=== PATIENT | male | born 1955 | race Caucasian/White ===

== ENCOUNTER → 2016-10-16 | Outpatient (CLI) | payer BC ==
[~2016-10-16] MED LIST: UNITHROID
== END | disposition home or self-care (01) ==
LOC: C.LAB1850 09:31
PROVIDERS: ATTEND Family Medicine
DX: E03.9 Hypothyroidism, unspecified (principal)

== ENCOUNTER → 2017-01-11 | Outpatient (CLI) | payer BC ==
[2017-01-11 15:38] LABS: THYROID STIMULATING HORMONE 0.031 uIu/ml (0.300-4.500)
== END | disposition home or self-care (01) ==
LOC: C.LAB1850 14:18
PROVIDERS: ATTEND Family Medicine
DX: E03.9 Hypothyroidism, unspecified (principal)

== ENCOUNTER → 2017-10-26 | Outpatient (CLI) | payer BC ==
[2017-10-26 12:12] LABS: BASO % 0.1 %; BASO ABS # 0.01 K/uL (0-0.2); EOS % 6.1 %; EOS ABS # 0.48 K/uL (0-0.5); HEMATOCRIT 42.7 % (42-52); HEMOGLOBIN 14.7 g/dL (14.0-18.0); IG# 0.01 K/uL (0.00-0.02); LYMPH % 26.8 %; LYMPH ABS # 2.11 K/uL (1.2-3.4); MEAN CELL VOLUME 88.6 fL (80-100); MEAN CORPUSCULAR HEMOGLOBIN 30.5 pg (25-34); MEAN CORPUSCULAR HGB CONC 34.4 g/dl (32-36); MEAN PLATELET VOLUME 10.6 fL (7.4-10.4); MONO % 7.8 %; MONO ABS # 0.61 K/uL (0.11-0.59); NEUT % 59.1 %; NEUT ABS # 4.64 K/uL (1.4-6.5); PLATELET COUNT 176 K/uL (130-400); RED CELL DISTRIBUTION WIDTH CV 13.3 % (11.5-14.5); RED CELL DISTRIBUTION WIDTH SD 43.3 fL (36.4-46.3); WHITE BLOOD COUNT 7.86 K/uL (4.8-10.8)
[2017-10-26 12:53] LABS: ALBUMIN 3.9 gm/dl (3.4-5.0); ALT/SGPT 44 U/L (12-78); AST/SGOT 22 U/L (15-37); BLOOD UREA NITROGEN 19 mg/dl (7-18); CALCIUM 9.2 mg/dl (8.5-10.1); CARBON DIOXIDE 28 mmol/L (21-32); CREATININE 0.88 mg/dl (0.60-1.40); GLUCOSE 91 mg/dl (70-99); POTASSIUM 4.3 mmol/L (3.5-5.1); SODIUM 134 mmol/L (136-145)
[2017-10-26 12:59] LABS: HEMOGLOBIN A1C 5.5 % (4.5-5.6)
[2017-10-26 13:04] LABS: ALKALINE PHOSPHATASE 56 U/L (45-117); CHOLESTEROL 137 mg/dl (0-200); LDL CHOLESTEROL CALCULATED 72 mg/dl; TOTAL PROTEIN 7.8 gm/dl (6.4-8.2)
== END | disposition home or self-care (01) ==
LOC: C.LAB1850 11:23
PROVIDERS: ATTEND Nurse Practitioner Family
DX: I42.9 Cardiomyopathy, unspecified (principal); E03.9 Hypothyroidism, unspecified; K21.9 Gastro-esophageal reflux disease without esophagitis; I10 Essential (primary) hypertension; N52.9 Male erectile dysfunction, unspecified; R73.03 Prediabetes

== ENCOUNTER 2017-11-19 08:07 | Inpatient (IN) | payer BC ==
[~2017-11-19] VITALS: Ht 175.3 cm; Wt 108.2 kg
--- NOTE | 2017-11-19 08:23 | EMERGENCY ROOM VISIT NOTE ---
History Report prepared by Jackie: Juan Miguel Gill Under the Supervision of: Dr. Keaton Sosa D.O. First contact with patient: 08:14 Chief Complaint: SHORTNESS OF BREATH Stated Complaint: SOB, CHEST TIGHTNESS History of Present Illness The patient is a 62 year old male who presents to the Emergency Room with complaints of persistent shortness of breath that began this morning at 0010, 8 hours ago. The patient states that his shortness of breath woke him up from sleep. His symptoms are worsened by laying flat, and improved by sitting up. He denies any chest pain, nausea, vomiting, or abdominal pain. He has no history of shortness of breath issues. He has not taken any of his medications yet today , including Lisinopril Source of History: patient Onset: 8 hours ago Position: chest Quality: other (Shortness of breath) Timing: other (persistent) Modifying Factors (Worsening): other (lying flat) Modifying Factors (Relieving): other (Standing up) Associated Symptoms: No chest pain, No nausea, No vomiting, No abdominal pain Review of Systems See HPI for pertinent positives & negatives. A total of 10 systems reviewed and were otherwise negative. Past Medical & Surgical Medical Problems: (1) Congestive heart failure (CHF) (2) HYPERTENSION NOS (3) HYPOTHYROIDISM NOS Family History Cancer Diabetes mellitus Heart disease Hypertension Social History Smoking Status: Former Smoker Alcohol Use: occasionally Drug Use: none Occupation Status: employed Current/Historical Medications Scheduled Aspirin (Aspirin Ec), 81 MG PO DAILY Levothyroxine Sodium (Synthroid), 150 MCG PO DAILY Lisinopril (Zestril), 10 MG PO DAILY Metoprolol Succ (Toprol Xl) (Toprol-Xl), 25 MG PO DAILY Multivitamin (Multivitamin), 1 TAB PO DAILY Allergies Coded Allergies: No Known Allergies (Unverified , 11/19/17) Physical Exam Vital Signs Date Time Temp Pulse Resp B/P (MAP) Pulse Ox O2 Delivery O2 Flow Rate FiO2 11/19/17 10:01 135/91 11/19/17 10:01 113 11/19/17 10:00 110 20 94 11/19/17 09:29 111 11/19/17 09:03 154/102 11/19/17 09:00 112 20 154/102 94 Room Air 11/19/17 08:27 108 5/18/18 08:25 99 Room Air 11/19/17 08:11 36.6 117 18 131/69 96 Room Air Physical Exam GENERAL: Patient is awake, alert, and in no acute distress. Patient somewhat anxious. EYES: The conjunctivae are clear. The pupils are round and reactive. EARS, NOSE, MOUTH AND THROAT: The nose is without any evidence of any deformity. Mucous membranes are moist tongue is midline NECK: The neck is nontender and supple. RESPIRATORY: Breath sounds are diminished throughout. Normal respiratory effort is noted there is no evidence of wheezing rhonchi or rales CARDIOVASCULAR: Tachycardic rate and rhythm noted there no murmurs rubs or gallops normal S1 normal S2 GASTROINTESTINAL: The abdomen is soft. Bowel sounds are present in all quadrants. Abdomen is nontender MUSCULOSKELETAL/EXTREMITIES: There is no evidence of gross deformity full range of motion is noted in the hips and shoulders SKIN: There is no obvious evidence of any rash. There is pedal edema bilaterally. There are no petechiae, pallor or cyanosis noted. NEUROLOGIC: Patient is awake alert and oriented x3 Medical Decision & Procedures ER Provider Diagnostic Interpretation: Radiology results as stated below per my review and radiologist interpretation: CHEST ONE VIEW PORTABLE HISTORY: 62 years-old Male EVALUATE ALTERED MENTAL STATUS/WEAKNESS acute shortness of breath with altered mental status COMPARISON: None available TECHNIQUE: Portable AP view of the chest FINDINGS: Cardiac silhouette is enlarged. Pulmonary vascular congestion with interstitial coarsening and trace effusions. Trace fluid tracks along the minor fissure. No pneumothorax. Subsegmental bibasilar opacities are noted. Degenerative changes about the spine and shoulders. IMPRESSION: 1. Cardiomegaly with mild pulmonary edema and trace bilateral pleural effusions. 2. Subsegmental bibasilar opacities favor atelectasis. The above report was generated using voice recognition software. It may contain grammatical, syntax or spelling errors. Electronically signed by: Jaxson Scanlon M.D. 11/19/2017 8:52 AM Dictated Date/Time: 11/19/2017 8:51 AM Laboratory Results 11/19/17 08:29 Red Blood Count 4.95, Mean Corpuscular Volume 86.9, Mean Corpuscular Hemoglobin 30.7, Mean Corpuscular Hemoglobin Concent 35.3, Mean Platelet Volume 10.3, Neutrophils (%) (Auto) 60.8, Lymphocytes (%) (Auto) 24.7, Monocytes (%) (Auto) 7.8, Eosinophils (%) (Auto) 6.3, Basophils (%) (Auto) 0.1, Neutrophils # (Auto) 5.26, Lymphocytes # (Auto) 2.14, Monocytes # (Auto) 0.68, Eosinophils # (Auto) 0.55, Basophils # (Auto) 0.01 11/19/17 08:29 Test 11/19/17 08:29 11/19/17 09:00 White Blood Count 8.67 K/uL (4.8-10.8) Red Blood Count 4.95 M/uL (4.7-6.1) Hemoglobin 15.2 g/dL (14.0-18.0) Hematocrit 43.0 % (42-52) Mean Corpuscular Volume 86.9 fL (80-100) Mean Corpuscular Hemoglobin 30.7 pg (25-34) Mean Corpuscular Hemoglobin Concent 35.3 g/dl (32-36) Platelet Count 170 K/uL (130-400) Mean Platelet Volume 10.3 fL (7.4-10.4) Neutrophils (%) (Auto) 60.8 % Lymphocytes (%) (Auto) 24.7 % Monocytes (%) (Auto) 7.8 % Eosinophils (%) (Auto) 6.3 % Basophils (%) (Auto) 0.1 % Neutrophils # (Auto) 5.26 K/uL (1.4-6.5) Lymphocytes # (Auto) 2.14 K/uL (1.2-3.4) Monocytes # (Auto) 0.68 K/uL (0.11-0.59) Eosinophils # (Auto) 0.55 K/uL (0-0.5) Basophils # (Auto) 0.01 K/uL (0-0.2) RDW Standard Deviation 43.1 fL (36.4-46.3) RDW Coefficient of Variation 13.7 % (11.5-14.5) Immature Granulocyte % (Auto) 0.3 % Immature Granulocyte # (Auto) 0.03 K/uL (0.00-0.02) Prothrombin Time 10.4 SECONDS (9.0-12.0) Prothromb Time International Ratio 1.0 (0.9-1.1) Activated Partial Thromboplast Time 25.5 SECONDS (21.0-31.0) Partial Thromboplastin Ratio 1.0 Anion Gap 6.0 mmol/L (3-11) Est Creatinine Clear Calc Drug Dose 103.3 ml/min Estimated GFR () 104.2 Estimated GFR (Non- 89.9 BUN/Creatinine Ratio 15.5 (10-20) Calcium Level 8.5 mg/dl (8.5-10.1) Magnesium Level 1.9 mg/dl (1.8-2.4) Total Bilirubin 0.7 mg/dl (0.2-1) Direct Bilirubin 0.2 mg/dl (0-0.2) Aspartate Amino Transf (AST/SGOT) 24 U/L (15-37) Alanine Aminotransferase (ALT/SGPT) 44 U/L (12-78) Alkaline Phosphatase 59 U/L (45-117) Total Creatine Kinase 84 U/L (39-308) Creatine Kinase MB 2.0 ng/ml (0.5-3.6) Creatine Kinase MB Ratio 2.4 (0-3.0) Troponin I < 0.015 ng/ml (0-0.045) Pro-B-Type Natriuretic Peptide 1333 pg/ml (0-900) Total Protein 7.5 gm/dl (6.4-8.2) Albumin 3.7 gm/dl (3.4-5.0) Lipase 105 U/L (73-393) Thyroid Stimulating Hormone (TSH) 0.095 uIu/ml (0.300-4.500) Free Thyroxine 1.27 ng/dl (0.80-1.60) Hepatitis C Antibody Screen NEG (NEG) Urine Color YELLOW Urine Appearance CLEAR (CLEAR) Urine pH 5.0 (4.5-7.5) Urine Specific [place] 1.017 (1.000-1.030) Urine Protein NEG (NEG) Urine Glucose (UA) NEG (NEG) Urine Ketones NEG (NEG) Urine Occult Blood NEG (NEG) Urine Nitrite NEG (NEG) Urine Bilirubin NEG (NEG) Urine Urobilinogen NEG (NEG) Urine Leukocyte Esterase SMALL (NEG) Urine WBC (Auto) 1-5 /hpf (0-5) Urine RBC (Auto) 0-4 /hpf (0-4) Urine Hyaline Casts (Auto) 0 /lpf (0-5) Urine Epithelial Cells (Auto) 0-5 /lpf (0-5) Urine Bacteria (Auto) NEG (NEG) Laboratory results per my review. Medications Administered Medications (Trade) Dose Ordered Sig/Kamila Route Start Time Stop Time Status Last Admin Dose Admin Furosemide (Lasix Inj) 40 mg NOW STAT IV 11/19/17 09:34 11/19/17 09:35 DC 11/19/17 10:02 40 MG Metoprolol Succinate (Toprol Xl Tab) 25 mg 1024 ONCE PO 11/19/17 10:24 11/19/17 10:54 DC 11/19/17 12:02 25 MG Lisinopril (Zestril Tab) 10 mg 1024 ONCE PO 11/19/17 10:24 11/19/17 10:54 DC 11/19/17 12:02 10 MG ECG Per My Interpretation Indication: SOB/dyspnea Rate (beats per minute): 120 Rhythm: sinus tachycardia Findings: PVC (frequent), other (possible areas electrical alternans noted. ) Comparison ECG Date: 05/17/2001 Change: changes are new. ED Course 0814: The patient was evaluated in room A2. A complete history and physical examination were performed. 0934: Ordered Lasix 40 mg IV. 0937: I discussed the case with Dr. Mueller [facility] Hospitalist. He will evaluate the patient for further treatment. 0945: Ordered Nitroglycerin 0.5 inch EXT. Medical Decision Differential diagnosis: Etiologies such as infections, reactive airway disease, pneumonia, pneumothorax , COPD, CHF, cardiac ischemia, pulmonary embolism, musculoskeletal, gastrointestinal, as well as others were entertained. Nursing notes reviewed. The patient is a 62-year-old male who presented to the emergency department for an evaluation of difficulty breathing. The patient was having orthopnea. His history and physical exam appear to be consistent with pulmonary edema. The patient had chest x-ray which was consistent with cardiomegaly and pulmonary edema. He was treated with Lasix and nitroglycerin in the emergency department. I discussed his case with the on-call alessandra Apple hospitalist. They have agreed to evaluate the patient in the emergency department for further management and disposition. The patient had a echocardiogram which showed significantly diminished ejection fraction. Likely the patient will require further cardiac workup. I discussed patient's laboratory and radiographic studies with him. Medication Reconcilliation Current Medication List: was personally reviewed by me Blood Pressure Screening Patient's blood pressure: Elevated blood pressure Referred to Hospitalist Consults Time Called: [phone] Consulting Physician: Dr. Ervin RODRIGUEZ Hospitalist Returned Call: [phone] I discussed the case with Dr. Ervin RODRIGUEZ Hospitalist. He will evaluate the patient for further treatment. Impression Primary Impression: Pulmonary edema Additional Impression: Frequent PVCs Scribe Attestation The scribe's documentation has been prepared under my direction and personally reviewed by me in its entirety. I confirm that the note above accurately reflects all work, treatment, procedures, and medical decision making performed by me. Departure Information Dispostion Being Evaluated By Hospitalist Referrals Judah Hebert III, CRNP (PCP) Patient Instructions My [facility] Problem Qualifiers Primary Impression: Pulmonary edema Chronicity: acute Qualified Codes: J81.0 - Acute pulmonary edema
[2017-11-19 08:39] LABS: BASO % 0.1 %; BASO ABS # 0.01 K/uL (0-0.2); EOS % 6.3 %; EOS ABS # 0.55 K/uL (0-0.5); HEMOGLOBIN 15.2 g/dL (14.0-18.0); IG# 0.03 K/uL (0.00-0.02); LYMPH % 24.7 %; LYMPH ABS # 2.14 K/uL (1.2-3.4); MEAN CELL VOLUME 86.9 fL (80-100); MEAN CORPUSCULAR HEMOGLOBIN 30.7 pg (25-34); MEAN CORPUSCULAR HGB CONC 35.3 g/dl (32-36); MEAN PLATELET VOLUME 10.3 fL (7.4-10.4); MONO % 7.8 %; MONO ABS # 0.68 K/uL (0.11-0.59); NEUT % 60.8 %; NEUT ABS # 5.26 K/uL (1.4-6.5); PLATELET COUNT 170 K/uL (130-400); RED CELL DISTRIBUTION WIDTH CV 13.7 % (11.5-14.5); RED CELL DISTRIBUTION WIDTH SD 43.1 fL (36.4-46.3); WHITE BLOOD COUNT 8.67 K/uL (4.8-10.8)
[2017-11-19] MEDS ORDERED: METO25TA3 PO (08:44)
[2017-11-19] MEDS ORDERED: MULT-506 PO (08:44)
[2017-11-19] MEDS ORDERED: LISI-461 PO (08:44)
[2017-11-19] MEDS ORDERED: ASPI81TA28 PO (08:44)
[2017-11-19] MEDS ORDERED: LEVO150T PO (08:44)
[2017-11-19] MEDS ORDERED: LEVO175T PO (08:44)
[2017-11-19 08:53] LABS: PTT PATIENT 25.5 SECONDS (21.0-31.0)
--- NOTE | 2017-11-19 08:53 | DIAGNOSTIC IMAGING REPORT ---
CHEST ONE VIEW PORTABLE HISTORY: 62 years-old Male EVALUATE ALTERED MENTAL STATUS/WEAKNESS acute shortness of breath with altered mental status COMPARISON: None available TECHNIQUE: Portable AP view of the chest FINDINGS: Cardiac silhouette is enlarged. Pulmonary vascular congestion with interstitial coarsening and trace effusions. Trace fluid tracks along the minor fissure. No pneumothorax. Subsegmental bibasilar opacities are noted. Degenerative changes about the spine and shoulders. IMPRESSION: 1. Cardiomegaly with mild pulmonary edema and trace bilateral pleural effusions. 2. Subsegmental bibasilar opacities favor atelectasis. The above report was generated using voice recognition software. It may contain grammatical, syntax or spelling errors. Electronically signed by: Jaxson Scanlon M.D. 11/19/2017 8:52 AM Dictated Date/Time: 11/19/2017 8:51 AM
[2017-11-19 09:03] LABS: ALBUMIN 3.7 gm/dl (3.4-5.0); ALKALINE PHOSPHATASE 59 U/L (45-117); ALT/SGPT 44 U/L (12-78); AST/SGOT 24 U/L (15-37); BLOOD UREA NITROGEN 14 mg/dl (7-18); CALCIUM 8.5 mg/dl (8.5-10.1); CARBON DIOXIDE 26 mmol/L (21-32); GLUCOSE 129 mg/dl (70-99); LIPASE 105 U/L (73-393); SODIUM 136 mmol/L (136-145); TOTAL PROTEIN 7.5 gm/dl (6.4-8.2)
[2017-11-19] MEDS ORDERED: FUROSEMIDE 40 MG/4 ML VIAL IV STA (09:34)
[2017-11-19] MEDS ORDERED: NITROGLYCERIN 2% OINTMENT 30GM TUBE EXT ONE (09:45)
[2017-11-19] MEDS ORDERED: METOPROLOL SUCC 25MG EXT REL TAB PO ONE (10:24)
[2017-11-19] MEDS ORDERED: LISINOPRIL 10 MG TAB PO ONE (10:24)
[2017-11-19] MEDS ORDERED: ACETAMINOPHEN 325 MG TAB PO PRN (10:30)
[2017-11-19] MEDS ORDERED: MAGNESIUM HYDROXIDE SUSP 30 ML UDC PO PRN (10:30)
[2017-11-19] MEDS ORDERED: ALUMINUM/MAGNESIUM/SIMETH (MAALOX MAX) 30 ML UDC PO PRN (10:30)
[2017-11-19] MEDS ORDERED: POLYETHYLENE (MIRALAX) 17 GM PACK PO PRN (10:30)
[2017-11-19] MEDS ORDERED: ONDANSETRON INJ 2 MG/ML 2 ML VIAL IV PRN (10:30)
[2017-11-19 10:43] VITALS: O2SAT 94; Ht 175.3 cm; Wt 108.2 kg
--- NOTE | 2017-11-19 10:53 | History and Physical ---
History & Physical Date & Time of Service: November 19, 2017 at 10:37 Chief Complaint: Sob, Chest Tightness Primary Care Physician: Judah Hebert III, CRNP History of Present Illness Source: patient, spouse, clinic records, hospital records This is a 62 y/o male with a history of HTN, idiopathic cardiomyopathy, hypothyroidism, h/o prediabetes, and GERD who presented to the ED on 11/19 with shortness of breath and orthopnea. The patient states he developed shortness of breath this morning starting around midnight, and this woke him from sleep. He states that his breathing is improved with sitting up and worse laying flat. The patient states he was wheezing this morning, but this is now resolved. His shortness of breath has also improved since arrival. He also notes a productive cough with clear sputum. He denies any chest pain but states that his "lungs felt tight" with deep breaths. The patient denies any weight gain, in fact has recently lost weight, and denies increased lower extremity edema. The patient has a history of idiopathic cardiomyopathy that was discovered via stress testing, but per pt, a repeat stress test later was normal and he no longer follows with cardiology. He does report a history of intermittent palpitations, but denies any currently. The patient denies fevers, chills, sweats, chest pain, palpitations, claudication, nausea, vomiting, abdominal pain , dysuria, hematuria, urinary retention, paralysis, weakness, numbness and tingling. 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 No chest pain, No claudication, No palpitations Abdomen: No pain, No nausea, No vomiting Musculoskeletal: No joint pain, No muscle pain, No swelling Genitourinary - Male: No dysuria, No urinary retention, No hematuria Neurologic: No paralysis, No weakness, No numbness/tingling Integumentary: No rash, No itch, No color change Physical Exam Vital Signs Date Time Temp Pulse Resp B/P (MAP) Pulse Ox O2 Delivery O2 Flow Rate FiO2 11/19/17 10:01 113 11/19/17 09:29 111 11/19/17 09:00 112 20 154/102 94 Room Air 11/19/17 08:27 108 11/19/17 08:25 99 Room Air 11/19/17 08:11 36.6 117 18 131/69 96 Room Air General appearance: +Obese. Well-developed, well-nourished, no apparent distress Head: Normocephalic, atraumatic Eyes: Normal inspection, PERRL, EOMI ENT: Normal ENT inspection, hearing grossly normal, pharynx normal Neck: Supple, no JVD, trachea midline Respiratory/Chest: +Decreased breath sounds in bases. Lungs clear to auscultation, no respiratory distress Cardiovascular: +Tachycardic. Regular rhythm, no gallop, no murmur Abdomen/GI: Normal bowel sounds, non-tender, soft Extremities/Musculoskeletal: +Trace pitting edema. Normal inspection, no calf tenderness Neurological/Psych: Alert, normal mood/affect, oriented x 3 Skin: Normal color, warm/dry, no rash Diagnostics Laboratory Results Results Past 24 Hours Test 11/19/17 08:29 11/19/17 09:00 Range/Units White Blood Count 8.67 4.8-10.8 K/uL Red Blood Count 4.95 4.7-6.1 M/uL Hemoglobin 15.2 14.0-18.0 g/dL Hematocrit 43.0 42-52 % Mean Corpuscular Volume 86.9 80-100 fL Mean Corpuscular Hemoglobin 30.7 25-34 pg Mean Corpuscular Hemoglobin Concent 35.3 32-36 g/dl Platelet Count 170 130-400 K/uL Mean Platelet Volume 10.3 7.4-10.4 fL Neutrophils (%) (Auto) 60.8 % Lymphocytes (%) (Auto) 24.7 % Monocytes (%) (Auto) 7.8 % Eosinophils (%) (Auto) 6.3 % Basophils (%) (Auto) 0.1 % Neutrophils # (Auto) 5.26 1.4-6.5 K/uL Lymphocytes # (Auto) 2.14 1.2-3.4 K/uL Monocytes # (Auto) 0.68 0.11-0.59 K/uL Eosinophils # (Auto) 0.55 0-0.5 K/uL Basophils # (Auto) 0.01 0-0.2 K/uL RDW Standard Deviation 43.1 36.4-46.3 fL RDW Coefficient of Variation 13.7 11.5-14.5 % Immature Granulocyte % (Auto) 0.3 % Immature Granulocyte # (Auto) 0.03 0.00-0.02 K/uL Prothrombin Time 10.4 9.0-12.0 SECONDS Prothromb Time International Ratio 1.0 0.9-1.1 Activated Partial Thromboplast Time 25.5 21.0-31.0 SECONDS Partial Thromboplastin Ratio 1.0 Sodium Level 136 136-145 mmol/L Potassium Level 4.0 3.5-5.1 mmol/L Chloride Level 104 98-107 mmol/L Carbon Dioxide Level 26 21-32 mmol/L Anion Gap 6.0 3-11 mmol/L Blood Urea Nitrogen 14 7-18 mg/dl Creatinine 0.90 0.60-1.40 mg/dl Est Creatinine Clear Calc Drug Dose 103.3 ml/min Estimated GFR () 104.2 Estimated GFR (Non- 89.9 BUN/Creatinine Ratio 15.5 10-20 Random Glucose 129 70-99 mg/dl Calcium Level 8.5 8.5-10.1 mg/dl Magnesium Level 1.9 1.8-2.4 mg/dl Total Bilirubin 0.7 0.2-1 mg/dl Direct Bilirubin 0.2 0-0.2 mg/dl Aspartate Amino Transf (AST/SGOT) 24 15-37 U/L Alanine Aminotransferase (ALT/SGPT) 44 12-78 U/L Alkaline Phosphatase 59 45-117 U/L Total Creatine Kinase 84 39-308 U/L Creatine Kinase MB 2.0 0.5-3.6 ng/ml Creatine Kinase MB Ratio 2.4 0-3.0 Troponin I < 0.015 0-0.045 ng/ml Pro-B-Type Natriuretic Peptide 1333 0-900 pg/ml Total Protein 7.5 6.4-8.2 gm/dl Albumin 3.7 3.4-5.0 gm/dl Lipase 105 73-393 U/L Thyroid Stimulating Hormone (TSH) 0.095 0.300-4.500 uIu/ml Free Thyroxine 1.27 0.80-1.60 ng/dl Urine Color YELLOW Urine Appearance CLEAR CLEAR Urine pH 5.0 4.5-7.5 Urine Specific [place] 1.017 1.000-1.030 Urine Protein NEG NEG Urine Glucose (UA) NEG NEG Urine Ketones NEG NEG Urine Occult Blood NEG NEG Urine Nitrite NEG NEG Urine Bilirubin NEG NEG Urine Urobilinogen NEG NEG Urine Leukocyte Esterase SMALL NEG Urine WBC (Auto) 1-5 0-5 /hpf Urine RBC (Auto) 0-4 0-4 /hpf Urine Hyaline Casts (Auto) 0 0-5 /lpf Urine Epithelial Cells (Auto) 0-5 0-5 /lpf Urine Bacteria (Auto) NEG NEG Diagnostic Radiology Reviewed the following studies and agree with interpretation as follows: CHEST ONE VIEW PORTABLE HISTORY: 62 years-old Male EVALUATE ALTERED MENTAL STATUS/WEAKNESS acute shortness of breath with altered mental status COMPARISON: None available TECHNIQUE: Portable AP view of the chest FINDINGS: Cardiac silhouette is enlarged. Pulmonary vascular congestion with interstitial coarsening and trace effusions. Trace fluid tracks along the minor fissure. No pneumothorax. Subsegmental bibasilar opacities are noted. Degenerative changes about the spine and shoulders. IMPRESSION: 1. Cardiomegaly with mild pulmonary edema and trace bilateral pleural effusions. 2. Subsegmental bibasilar opacities favor atelectasis. EKG Reviewed EKG and agree with interpretation as follows: 120 bpm, sinus tachycardia with low QRS voltage, possible evidence of electrical alternans? Impression Assessment and Plan 62 y/o male with a history of HTN, idiopathic cardiomyopathy, hypothyroidism, h/ o prediabetes, and GERD who presented to the ED on 11/19 with shortness of breath and orthopnea. Pt tachycardic on arrival but is non-hypoxic and BP stable. EKG shows sinus tach with low voltage QRS and possible electrical alternans. CXR shows pulmonary edema. BNP is elevated at 1333. TSH low at 0.095. Troponin negative. Pt given 1 dose Lasix 40 mg IV in ED. New onset congestive heart failure, unknown if systolic or diastolic -Admit to telemetry -Daily weights, strict I's & O's -Lasix 40 mg IV qd -Low sodium diet -Echocardiogram -Consult cardiology -Trend cardiac enzymes x 2 more sets, first set negative -Continue metoprolol, lisinopril Possible pericardial effusion -Echo as above, cardiology will follow -Hemodynamically stable HTN--stable, NOT hypotensive -Continue Toprol XL 25 mg PO qd, lisinopril 10 mg PO qd H/o ischemic cardiomyopathy--pt had been seeing Dr. De La Rosa, this is apparently resolved per pt and has not seen cardiology for years Hypothyroidism -TSH 0.095. May be contributing to tachycardia -Pt recently saw PCP, Synthroid dose lowered about 2 weeks ago. Scheduled to repeat TSH as outpatient in a few weeks -Continue Synthroid 150 mcg PO qd (lowered from 175) H/o prediabetes--last HgbA1c 5.5 on 10/26/17 -Monitor daily glucose on PRP, hold off on ISS for now DVT prophylaxis -Enoxaparin 40 mg SC q24h -STEVE Ruizs Code Status -Level I, FULL RESUSCITATION STATUS Resuscitation Status VTE Prophylaxis Will order VTE Prophylaxis: Yes
[2017-11-19 12:10] VITALS: BP 124/82; PULSE 108; TEMP 36.7; O2SAT 96
--- NOTE | 2017-11-19 13:31 | ECHOCARDIOGRAM REPORT ---
*NOTICE TO RECEIVING [employer] This information is strictly Confidential and protected under [place] law. [place] law prohibits you from making any further disclosure of this information unless further disclosure is expressly permitted by the written consent of the person to whom it pertains or is authorized by law. A general authorization for the release of medical or other information is not sufficient for this purpose. Hospital accepts no responsibility if the information is made available to any other person, INCLUDING THE PATIENT. Interpretation Summary * Name: ALEXANDRA PATTERSON Study Date: 11/19/2017 11:08 AM BP: 135/91 mmHg * Patient [facility] HR: 110 * : 1955 (M/d/yyyy) Gender: Male Height: 69 in * Age: 62 yrs Ethnicity: [place] Weight: 247 lb * Ordering Physician: Jina Becker * Referring Physician: Self, Referred * Performed By: Bernice Powers RDCS * * Reason For Study: CHF * BSA: 2.3 m2 * -- Conclusions -- * 1. Moderately to severely dilated left ventricle with severely reduced systolic function. EF 20-25%. Global hypokinesis. No left ventricular hypertrophy. No visualized apical thrombus. Tissue Doppler suggests elevated left atrial pressure. * 2. The left atrium is moderately dilated. * 3. Sclerotic aortic valve with [id number] aortic stenosis and mild regurgitation. Degree of aortic stenosis may be underestimated secondary to reduced LV systolic function. * 4. There is mild mitral regurgitation. * 5. Technically difficult study, enhanced with IV Definity. * 6. No prior study available for comparison. Procedure Details * A contrast injection of Definity was performed to improve assessment of LV function. * Contrast was injected into an intravenous site in the left arm. * One vial of Definity ultrasound contrast was diluted in normal saline to a total volume of 10 ml. A total of '2' ml of solution was administered during imaging. * Lot # [id number] of Definity utilized for procedure. * Expiration date OCT 21. Left Ventricle * Moderately to severely dilated left ventricle with severely reduced systolic function. EF 20-25%. Global hypokinesis. No left ventricular hypertrophy. No visualized apical thrombus. Right Ventricle * The right ventricle is normal in size and function. * The right ventricular systolic function is normal as assessed by tricuspid annular plane systolic excursion (TAPSE) (normal >1.5 cm). Atria * The left atrium is moderately dilated. * Right atrial size is normal. * There is no evidence of atrial septal defect, but resolution does not allow assessment for a patent foramen ovale. Mitral Valve * The mitral valve is grossly normal. * There is no mitral valve stenosis. * There is mild mitral regurgitation. Tricuspid Valve * The tricuspid valve is not well visualized, but is grossly normal. * There is no tricuspid stenosis. * Significant tricuspid regurgitation is absent. Aortic Valve * Dimensionless index 0.3 * Sclerotic aortic valve with [id number] aortic stenosis and mild regurgitation. Degree of aortic stenosis may be underestimated secondary to reduced LV systolic function. Pulmonic Valve * The pulmonary valve is inadequately visualized, but the Doppler data is adequate for interpretation. * There is no pulmonic valvular stenosis. * There is no significant pulmonary regurgitation. Great Vessels * The aortic root is normal size. * Ascending aorta of normal dimension Pericardium/Pleural * There is no pericardial effusion. Great Vessels * Normal IVC size. Reduced inspiratory collapse. MMode 2D Measurements and Calculations IVSd 0.92 cm IVSs 10 cm LVIDd 6.4 cm LVIDs 6.0 cm LVPWd 1.1 cm LVPWs 1.4 cm IVS/LVPW 0.87 FS 6.8 % EDV(Teich) 209.4 ml ESV(Teich) 178.3 ml EF(Teich) 14.8 % EDV(cubed) 263.5 ml ESV(cubed) 213.3 ml EF(cubed) 19.1 % % IVS thick 7.9 % % LVPW thick 31.3 % LV mass(C)d 272.9 grams LV mass(C)dI 120.8 grams/m\S\2 LV mass(C)s 309.1 grams LV mass(C)sI 136.8 grams/m\S\2 SV(Teich) 31.1 ml SI(Teich) 13.8 ml/m\S\2 SV(cubed) 50.2 ml SI(cubed) 22.2 ml/m\S\2 Ao root diam 2.7 cm Ao root area 5.6 cm\S\2 LA dimension 4.5 cm asc Aorta Diam 2.6 cm LA/Ao 1.7 LVOT diam 2.2 cm LVOT area 3.9 cm\S\2 LVAd ap4 50.0 cm\S\2 LVLd ap4 9.0 cm EDV(MOD-sp4) 228.0 ml EDV(sp4-el) 235.7 ml LVAs ap4 42.6 cm\S\2 LVLs ap4 8.6 cm ESV(MOD-sp4) 175.3 ml ESV(sp4-el) 180.3 ml EF(MOD-sp4) 23.1 % EF(sp4-el) 23.5 % LVAd ap2 44.3 cm\S\2 LVLd ap2 8.4 cm EDV(MOD-sp2) 184.3 ml EDV(sp2-el) 197.3 ml LVAs ap2 37.0 cm\S\2 LVLs ap2 7.9 cm ESV(MOD-sp2) 140.0 ml ESV(sp2-el) 146.7 ml EF(MOD-sp2) 24.0 % EF(sp2-el) 25.7 % LVLd %diff -6.60 % EDV(MOD-bp) 207.4 ml LVLs %diff -8.18 % ESV(MOD-bp) 155.2 ml EF(MOD-bp) 25.1 % SV(MOD-sp4) 52.7 ml SI(MOD-sp4) 23.3 ml/m\S\2 SV(MOD-sp2) 44.3 ml SI(MOD-sp2) 19.6 ml/m\S\2 SV(MOD-bp) 52.1 ml SI(MOD-bp) 23.1 ml/m\S\2 SV(sp4-el) 55.3 ml SI(sp4-el) 24.5 ml/m\S\2 SV(sp2-el) 50.6 ml SI(sp2-el) 22.4 ml/m\S\2 Doppler Measurements and Calculations MV E max jaspreet 106.7 cm/sec MV dec time 0.12 sec Ao V2 max 272.3 cm/sec Ao max PG 29.7 mmHg Ao max PG (full) 26.9 mmHg Ao V2 mean 199.5 cm/sec Ao mean PG 17.7 mmHg Ao mean PG (full) 16.0 mmHg Ao V2 VTI 49.5 cm HUBERT(I,A) 1.4 cm\S\2 HUBERT(I,D) 1.4 cm\S\2 HUBERT(V,A) 1.2 cm\S\2 HUBERT(V,D) 1.2 cm\S\2 AI max jaspreet 409.9 cm/sec AI max PG 67.2 mmHg AI dec slope 416.8 cm/sec\S\2 AI P1/2t 288.1 msec LV V1 max PG 2.7 mmHg LV V1 mean PG 1.7 mmHg LV V1 max 82.6 cm/sec LV V1 mean 62.4 cm/sec LV V1 VTI 17.1 cm SV(Ao) 278.1 ml SI(Ao) 123.1 ml/m\S\2 SV(LVOT) 66.9 ml SI(LVOT) 29.6 ml/m\S\2 RAP systole 8.0 mmHg
[2017-11-19] MEDS: ENOXAPARIN 40 MG/0.4 ML SYR SC SCH (14:18)
[2017-11-19 15:32] VITALS: BP 107/73; PULSE 110; TEMP 36.4; O2SAT 96
[2017-11-19 16:43] LABS: CKMB 1.8 ng/ml (0.5-3.6)
--- NOTE | 2017-11-19 16:56 | Cardiology Consultation ---
Cardiology Consultation Date of Consultation: November 19, 2017. Requesting Physician: Dr. Gaudencio Suresh Attending Physician: Dr. Gaudencio Suresh Reason for Consultation: New onset CHF and possible pericardial effusion Pt evaluation today including: conversation w/ patient, conversation w/ family , physical exam, chart review, lab review, review of studies, review of inpatient medication list, conversation w/ attending History of Present Illness Mr. Muller is a very pleasant 62-year-old gentleman with a history significant for cardiomyopathy and hypothyroidism. In the past, he was followed by Dr. De La Rosa, last seen on 11/25/2010. He was diagnosed with presumed idiopathic cardiomyopathy in the past with frequent but minimally symptomatic ventricular ectopy. He was medicated with metoprolol succinate 25 mg daily and lisinopril 10 mg daily. In the past, there was discussion in obtaining CT angiography to help define his coronary anatomy but this was not done due to insurance issues. He has not had a cardiac catheterization. His last cardiac imaging was in the form of a stress echo on 04/16/2011 which reported negative ischemic evaluation, exercising for 5 minutes on a standard Antoni protocol. Resting LV systolic function was moderately reduced with reported EF of 40%. Global hypokinesis was reported, as well as possibly bicuspid aortic valve and mild MR. He has done well since last evaluation with Dr. De La Rosa until early this morning. At approximately 12:10 a.m., he woke up and went to the restroom. When he came back, he was unable to lay down secondary to orthopnea. He felt a full feeling across his chest that would last for several minutes before resolving. It occurred intermittently. He thinks his symptoms actually felt better with ambulation. He went downstairs and sat in a lazy boy due to orthopnea. He had intermittent palpitations described as a flutter sensation that would last for a few minutes before spontaneously resolving. He was given diuretic therapy and he already feels much better. He denies any further feeling in his chest or chest discomfort. He denies syncope, near-syncope, or significant edema. He denies melena, hematochezia, hematuria, recent illness, stroke-like symptom, abdominal pain, nausea, vomiting , rash, or other symptom. He does not consume foods high in sodium content. Review of systems: As above review of systems otherwise negative/unremarkable. Past Medical/Surgical History 1. Cardiomyopathy 2. Hypothyroidism 3. PVCs 4. According to records, hypertension but he denies a diagnosis of hypertension. Family History Cancer (prostate, unknown gynecological cancer) Diabetes mellitus Heart disease Hypertension Myocardial infarction Stroke Mother while hospitalized with CABG at the age of 67. Social History Smoking Status: Former Smoker (quit about 30 years ago) History of Alcohol Use: No Quit smoking 25+ years ago. Two or 3 alcoholic beverages per week. No drugs. Lives at home with his , Saray, who is sitting at the bedside. An adult son also lives at home. Also has a daughter. Three grandchildren. He drives [employer]. All Other Systems: Reviewed and Negative Allergies Coded Allergies: No Known Allergies (Unverified , 11/19/17) Medications Reported Home Medications Medications Dose Route/Sig Max Daily Dose Days Date Category Toprol-Xl (Metoprolol Succinate) 25 Mg Tabcr 25 Mg PO DAILY 11/19/17 Reported Zestril (Lisinopril) 10 Mg Tab 10 Mg PO DAILY 11/19/17 Reported Synthroid (Levothyroxine Sodium) 150 Mcg Tab 150 Mcg PO DAILY 11/19/17 Reported Multivitamin (Multivitamins) Tab 1 Tab PO DAILY 11/19/17 Reported Aspirin Ec (Aspirin) 81 Mg Tab 81 Mg PO DAILY 11/19/17 Reported Current Inpatient Medications Medications (Trade) Dose Ordered Sig/Kamila Route Start Time Stop Time Status Last Admin Dose Admin Enoxaparin Sodium (Lovenox Inj) 40 mg DAILY SC 11/19/17 13:00 12/19/17 12:59 11/19/17 14:18 40 MG Acetaminophen (Tylenol Tab) 650 mg Q4H PRN PO 11/19/17 10:30 12/19/17 10:29 Al Hydrox/Mg Hydrox/Simethicone (Maalox Max Susp) 15 ml Q4H PRN PO 11/19/17 10:30 12/19/17 10:29 Magnesium Hydroxide (Milk Of Magnesia Susp) 30 ml Q12H PRN PO 11/19/17 10:30 12/19/17 10:29 Ondansetron HCl (Zofran Inj) 4 mg Q6H PRN IV 11/19/17 10:30 12/19/17 10:29 Polyethylene (Miralax Powder Packet) 17 gm DAILY PRN PO 11/19/17 10:30 12/19/17 10:29 Furosemide 40 mg/ Syringe 4 ml @ 4 mls/min DAILY IV 11/20/17 09:00 12/20/17 08:59 Aspirin (Ecotrin Tab) 81 mg DAILY PO 11/20/17 09:00 12/20/17 08:59 Levothyroxine Sodium (Synthroid Tab) 150 mcg DAILYBB PO 11/20/17 06:30 12/20/17 06:29 Lisinopril (Zestril Tab) 10 mg DAILY PO 11/20/17 09:00 12/20/17 08:59 Metoprolol Succinate (Toprol Xl Tab) 25 mg DAILY PO 11/20/17 09:00 12/20/17 08:59 Multivitamins (Multivitamin Tab) 1 tab DAILY PO 11/20/17 09:00 12/20/17 08:59 Physical Exam Vital Signs Past 12 Hours Date Time Temp Pulse Resp B/P (MAP) Pulse Ox O2 Delivery O2 Flow Rate FiO2 11/19/17 15:32 36.4 110 18 107/73 (84) 96 Room Air 11/19/17 12:10 36.7 108 20 124/82 (96) 96 Room Air 11/19/17 12:02 106 20 110/76 98 11/19/17 11:45 110 20 98 11/19/17 10:43 94 Room Air 11/19/17 10:01 135/91 11/19/17 10:01 113 11/19/17 10:00 110 20 94 11/19/17 09:29 111 11/19/17 09:03 154/102 11/19/17 09:00 112 20 154/102 94 Room Air 11/19/17 08:27 108 11/19/17 08:25 99 Room Air 11/19/17 08:11 36.6 117 18 131/69 96 Room Air Gen.: No acute distress. Alert and oriented. HEENT: Anicteric sclera. Neck: Thick neck. No appreciable JVD. Hepatic jugular reflux noted however. No bruits. Normal carotid upstrokes bilaterally. Cardiac: PMI was nonpalpable. No ventricular heave. Regular rate and rhythm. Normal S1-S2. S3. Systolic murmur heard throughout. No rub. Pulmonary: Decreased breath sounds throughout, but otherwise clear to auscultation bilaterally without wheezes, rales, or rhonchi. Abdomen: Soft, nontender, nondistended, with normoactive bowel sounds. No bruits noted. Extremities: 2+ radial pulses bilaterally. 2+ posterior tibialis pulses bilaterally. Trace to 1+ bilateral lower extremity edema. No cyanosis. Psychiatric: Affect appears appropriate. Data Laboratory Results: Last 24 Hours Test 11/19/17 08:29 11/19/17 09:00 11/19/17 16:11 White Blood Count 8.67 K/uL Red Blood Count 4.95 M/uL Hemoglobin 15.2 g/dL Hematocrit 43.0 % Mean Corpuscular Volume 86.9 fL Mean Corpuscular Hemoglobin 30.7 pg Mean Corpuscular Hemoglobin Concent 35.3 g/dl Platelet Count 170 K/uL Mean Platelet Volume 10.3 fL Neutrophils (%) (Auto) 60.8 % Lymphocytes (%) (Auto) 24.7 % Monocytes (%) (Auto) 7.8 % Eosinophils (%) (Auto) 6.3 % Basophils (%) (Auto) 0.1 % Neutrophils # (Auto) 5.26 K/uL Lymphocytes # (Auto) 2.14 K/uL Monocytes # (Auto) 0.68 K/uL Eosinophils # (Auto) 0.55 K/uL Basophils # (Auto) 0.01 K/uL RDW Standard Deviation 43.1 fL RDW Coefficient of Variation 13.7 % Immature Granulocyte % (Auto) 0.3 % Immature Granulocyte # (Auto) 0.03 K/uL Prothrombin Time 10.4 SECONDS Prothromb Time International Ratio 1.0 Activated Partial Thromboplast Time 25.5 SECONDS Partial Thromboplastin Ratio 1.0 Sodium Level 136 mmol/L Potassium Level 4.0 mmol/L Chloride Level 104 mmol/L Carbon Dioxide Level 26 mmol/L Anion Gap 6.0 mmol/L Blood Urea Nitrogen 14 mg/dl Creatinine 0.90 mg/dl Est Creatinine Clear Calc Drug Dose 103.3 ml/min Estimated GFR () 104.2 Estimated GFR (Non- 89.9 BUN/Creatinine Ratio 15.5 Random Glucose 129 mg/dl Calcium Level 8.5 mg/dl Magnesium Level 1.9 mg/dl Total Bilirubin 0.7 mg/dl Direct Bilirubin 0.2 mg/dl Aspartate Amino Transf (AST/SGOT) 24 U/L Alanine Aminotransferase (ALT/SGPT) 44 U/L Alkaline Phosphatase 59 U/L Total Creatine Kinase 84 U/L Creatine Kinase MB 2.0 ng/ml Creatine Kinase MB Ratio 2.4 Troponin I < 0.015 ng/ml Pro-B-Type Natriuretic Peptide 1333 pg/ml Total Protein 7.5 gm/dl Albumin 3.7 gm/dl Lipase 105 U/L Thyroid Stimulating Hormone (TSH) 0.095 uIu/ml Free Thyroxine 1.27 ng/dl Hepatitis C Antibody Screen NEG Urine Color YELLOW Urine Appearance CLEAR Urine pH 5.0 Urine Specific Hope 1.017 Urine Protein NEG Urine Glucose (UA) NEG Urine Ketones NEG Urine Occult Blood NEG Urine Nitrite NEG Urine Bilirubin NEG Urine Urobilinogen NEG Urine Leukocyte Esterase SMALL Urine WBC (Auto) 1-5 /hpf Urine RBC (Auto) 0-4 /hpf Urine Hyaline Casts (Auto) 0 /lpf Urine Epithelial Cells (Auto) 0-5 /lpf Urine Bacteria (Auto) NEG ECG personally reviewed. ECG 11/19/2017 at 8:25 a.m.: Probable sinus tachycardia with frequent PACs with intermittent aberrant ventricular conduction. Possible anterior infarct. Echo 11/19/2017 personally reviewed: Moderately to severely dilated LV with severely reduced systolic function. EF 20-25%. Global hypokinesis. No visualized apical thrombus. Tissue Doppler suggests elevated left atrial pressure. Moderately dilated left atrium. Sclerotic aortic valve with mild-to- moderate stenosis and mild AI. Degree of aortic stenosis may be underestimated secondary to reduced LV systolic function. Mild MR. Chest x-ray 11/19/2017: Reported as mild pulmonary edema and trace bilateral pleural effusions by Radiology. Upon personal review, increased vascular markings. No obvious infiltrate. Assessment & Plan ASSESSMENT/PLAN: 1. Acute systolic CHF: He appears hypervolemic but has improved with IV diuretic. Continue IV diuretic. Monitor fluid balance closely. Daily weights. Low-sodium diet. We discussed importance of less than 2000 mg of sodium per day and daily weights at home. Start Entresto in [address] of lisinopril. Continue beta-ralph. 2. Cardiomyopathy: Recommend ischemic evaluation. Cardiac catheterization recommended and discussed in detail. Risks and benefits discussed with him. He was made aware that CT surgery is not available at this facility and is agreeable to undergo cardiac catheterization. As he ate this afternoon, this will be planned for [place]. Increase metoprolol succinate tomorrow. Replace lisinopril with Entresto. LV systolic function significantly reduced. After titration of medications, if no improvement, consider ICD. This will be followed as an outpatient. Recommend right and left heart catheterization. 3. Chest discomfort: He describes a fullness in his chest. This could represent angina or could be secondary to decompensated CHF. Ischemic evaluation as above. Recommend aspirin 81 mg daily. Continue beta-ralph with changes as above. 4. Aortic stenosis: Degree of aortic stenosis may be underestimated secondary to reduced LV systolic function. This can be further evaluated in the future. 5. Tachycardia: Likely secondary to decompensated CHF and significantly reduced LV systolic function to help maintain adequate cardiac output. Continue current dose of metoprolol today but after hypervolemia improves, can titrate tomorrow. 6. Disposition: Cardiology will continue to follow. Plan of care discussed with Dr. Suresh of the primary hospitalist service. It was also discussed with Dr. Ashton, who will be available to perform the cardiac catheterization. Dr. Espinosa will be covering this weekend and patient care will be signed out to him. Call with any questions or concerns. Highly complex medical issues. Thank you for allowing me to participate in the care of your patient. Please call for any other questions or concerns. Sincerely, Saurabh Haddad M.D.
[2017-11-19 19:58] VITALS: BP 106/68; PULSE 88; TEMP 36.8; O2SAT 95
[2017-11-20] VITALS (7 sets, daily range): BP systolic 95–113; BP diastolic 49–75; PULSE 80–102; TEMP 36.4–37; O2SAT 95–98
[2017-11-20 00:48] LABS: CKMB 1.6 ng/ml (0.5-3.6)
[2017-11-20] MEDS: LEVOTHYROXINE 150 MCG TAB PO SCH (06:04)
[2017-11-20 07:19] LABS: HEMATOCRIT 41.5 % (42-52); HEMOGLOBIN 14.4 g/dL (14.0-18.0); MEAN CELL VOLUME 86.6 fL (80-100); MEAN CORPUSCULAR HEMOGLOBIN 30.1 pg (25-34); MEAN CORPUSCULAR HGB CONC 34.7 g/dl (32-36); MEAN PLATELET VOLUME 10.2 fL (7.4-10.4); PLATELET COUNT 150 K/uL (130-400); RED CELL DISTRIBUTION WIDTH CV 13.6 % (11.5-14.5); WHITE BLOOD COUNT 7.74 K/uL (4.8-10.8)
[2017-11-20 07:50] LABS: CALCIUM 8.4 mg/dl (8.5-10.1); CREATININE 0.81 mg/dl (0.60-1.40); POTASSIUM 4.1 mmol/L (3.5-5.1)
[2017-11-20] MEDS: FUROSEMIDE INJ 40 MG in SYRINGE 0 ML IV SCH (08:58)
[2017-11-20] MEDS: ASPIRIN 81 MG ECTAB PO SCH (08:59)
[2017-11-20] MEDS: ENOXAPARIN 40 MG/0.4 ML SYR SC SCH (09:00)
[2017-11-20] MEDS ORDERED: LISINOPRIL 10 MG TAB PO SCH (09:00)
[2017-11-20] MEDS: MULTIVITAMIN TAB PO SCH (09:00)
[2017-11-20] MEDS ORDERED: METOPROLOL SUCC 25MG EXT REL TAB PO SCH (09:00)
[2017-11-20] MEDS: METOPROLOL SUCC 25MG EXT REL TAB PO SCH (09:33)
--- NOTE | 2017-11-20 10:30 | Progress Note ---
Subjective Date of Service: November 20, 2017. Subjective Pt evaluation today including: conversation w/ patient, physical exam, lab review, conversation w/ hematology oncology consultant, review of inpatient medication list Pain: no pain PO Intake: adequate Voiding: no voiding problems continues to respond well to Lasix weight down 4kg, inaccurate I/O's no dyspnea today, no orthopnea reviewed labs, Cr stable with diuresis HR better controlled today, BP low normal Problem List Medical Problems: (1) Frequent PVCs Status: Acute (2) Pulmonary edema Status: Acute Review of Systems All Other Systems: Reviewed and Negative Medications Current Inpatient Medications Medications (Trade) Dose Ordered Sig/Kamila Route Start Time Stop Time Status Last Admin Dose Admin Enoxaparin Sodium (Lovenox Inj) 40 mg DAILY SC 11/19/17 13:00 12/19/17 12:59 11/20/17 09:00 40 MG Acetaminophen (Tylenol Tab) 650 mg Q4H PRN PO 11/19/17 10:30 12/19/17 10:29 Al Hydrox/Mg Hydrox/Simethicone (Maalox Max Susp) 15 ml Q4H PRN PO 11/19/17 10:30 12/19/17 10:29 Magnesium Hydroxide (Milk Of Magnesia Susp) 30 ml Q12H PRN PO 11/19/17 10:30 12/19/17 10:29 Ondansetron HCl (Zofran Inj) 4 mg Q6H PRN IV 11/19/17 10:30 12/19/17 10:29 Polyethylene (Miralax Powder Packet) 17 gm DAILY PRN PO 11/19/17 10:30 12/19/17 10:29 Furosemide 40 mg/ Syringe 4 ml @ 4 mls/min DAILY IV 11/20/17 09:00 12/20/17 08:59 11/20/17 08:58 4 MLS/MIN Aspirin (Ecotrin Tab) 81 mg DAILY PO 11/20/17 09:00 12/20/17 08:59 11/20/17 08:59 81 MG Levothyroxine Sodium (Synthroid Tab) 150 mcg DAILYBB PO 11/20/17 06:30 12/20/17 06:29 11/20/17 06:04 150 MCG Multivitamins (Multivitamin Tab) 1 tab DAILY PO 11/20/17 09:00 12/20/17 08:59 11/20/17 09:00 1 TAB Metoprolol Succinate (Toprol Xl Tab) 50 mg DAILY PO 11/20/17 09:00 12/20/17 08:59 11/20/17 09:33 50 MG Sacubitril/ Valsartan (Entresto 24-26 Mg) 1 tab BID PO 11/21/17 08:00 12/21/17 07:59 Objective Vital Signs Date Time Temp Pulse Resp B/P (MAP) Pulse Ox O2 Delivery O2 Flow Rate FiO2 11/20/17 07:30 36.8 94 18 113/72 (86) 96 Room Air 11/20/17 04:27 37.0 80 17 107/73 (84) 96 Room Air 11/20/17 04:00 Room Air 11/20/17 01:01 36.4 100 18 106/74 (85) 96 Room Air 11/20/17 00:00 Room Air 11/19/17 20:00 Room Air 11/19/17 19:58 36.8 88 18 106/68 (81) 95 Room Air 11/19/17 16:00 Room Air 11/19/17 15:32 36.4 110 18 107/73 (84) 96 Room Air 11/19/17 12:10 36.7 108 20 124/82 (96) 96 Room Air 11/19/17 12:02 106 20 110/76 98 11/19/17 11:45 110 20 98 11/19/17 10:43 94 Room Air Physical Exam General Appearance: no apparent distress, + obese Eyes: normal inspection, EOMI, sclerae normal ENT: normal ENT inspection, hearing grossly normal, pharynx normal Neck: supple, no adenopathy, no JVD, trachea midline Respiratory/Chest: chest non-tender, lungs clear, normal breath sounds, no respiratory distress, no accessory muscle use Cardiovascular: regular rate, rhythm, no edema, no gallop, no JVD, no murmur Abdomen: normal bowel sounds, non tender, soft, no organomegaly Extremities: normal range of motion, non-tender, normal inspection, no pedal edema, no calf tenderness 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, no motor/sensory deficits, alert, normal mood/affect, oriented x 3 Skin: normal color, warm/dry, no rash Laboratory Results Last 24 Hours Test 11/19/17 16:11 11/20/17 00:12 11/20/17 07:00 Total Creatine Kinase 92 U/L 76 U/L Creatine Kinase MB 1.8 ng/ml 1.6 ng/ml Creatine Kinase MB Ratio 2.0 2.1 Troponin I < 0.015 ng/ml < 0.015 ng/ml White Blood Count 7.74 K/uL Red Blood Count 4.79 M/uL Hemoglobin 14.4 g/dL Hematocrit 41.5 % Mean Corpuscular Volume 86.6 fL Mean Corpuscular Hemoglobin 30.1 pg Mean Corpuscular Hemoglobin Concent 34.7 g/dl RDW Standard Deviation 43.0 fL RDW Coefficient of Variation 13.6 % Platelet Count 150 K/uL Mean Platelet Volume 10.2 fL Sodium Level 138 mmol/L Potassium Level 4.1 mmol/L Chloride Level 105 mmol/L Carbon Dioxide Level 27 mmol/L Anion Gap 6.0 mmol/L Blood Urea Nitrogen 13 mg/dl Creatinine 0.81 mg/dl Est Creatinine Clear Calc Drug Dose 111.8 ml/min Estimated GFR () 108.9 Estimated GFR (Non- 93.9 BUN/Creatinine Ratio 16.3 Random Glucose 107 mg/dl Calcium Level 8.4 mg/dl Assessment and Plan 62 yo male presented with acute onset of orthopnea and dyspnea on exertion, started in the middle of the night. Found to have EF of 25-30% which was new finding on echo - Acute systolic heart failure: new onset, EF is 25-30% continue Toprol, titrate up to 50mg daily today, HR and BP tolerating today continue Lisinopril 10mg, tentatively plan to start Entresto on Wednesday per cardiology continue Lasix 40mg IV daily, weight down 4kg today, Cr stable fluid restrict to 1800cc daily plan for diagnostic heart catheterization on Wednesday improve volume status over the weekend - Acute respiratory failure: due to pulmonary edema, resolved with diuresis - Hypothyroidism with low TSH due to high dose of Synthroid was addressed by PCP two weeks ago, will follow up with PCP - HTN: BP low normal, continue Toprol, Lisinopril - DVT prophylaxis: Lovenox
--- NOTE | 2017-11-20 11:21 | Cardiology Follow-Up ---
Subjective Date of Service: November 20, 2017. Pt evaluation today including: conversation w/ patient, physical exam, lab review, review of studies, review of inpatient medication list History of Present Illness He is feeling very well today, he is not short of breath and he has had no chest discomfort. He does not have lightheadedness or dizziness. He has started Entresto as well as a higher dose of metoprolol given this morning and so far feels well. Social History Smoking Status: Former Smoker (quit about 30 years ago) History of Alcohol Use: No Review of Systems Respiratory: No shortness of breath Cardiac: No chest pain Medications Cardiovascular: Item Value Date Time Sacubitril/ 1 tab 11/21/17 0800 Valsartan BID/PO (Entresto 24-26 Mg) Furosemide 40 mg/ 4 ml @ 4 mls/min 11/20/17 0900 Syringe DAILY/IV 11/20/17 0858 Aspirin 81 mg 11/20/17 0900 (Ecotrin Tab) DAILY/PO 11/20/17 0859 Metoprolol 50 mg 11/20/17 0900 Succinate DAILY/PO 11/20/17 0933 (Toprol Xl Tab) Enoxaparin Sodium 40 mg 11/19/17 1300 (Lovenox Inj) DAILY/SC 11/20/17 0900 Objective Vital Signs Past 12 Hours Date Time Temp Pulse Resp B/P (MAP) Pulse Ox O2 Delivery O2 Flow Rate FiO2 11/20/17 08:00 Room Air 11/20/17 07:30 36.8 94 18 113/72 (86) 96 Room Air 11/20/17 04:27 37.0 80 17 107/73 (84) 96 Room Air 11/20/17 04:00 Room Air 11/20/17 01:01 36.4 100 18 106/74 (85) 96 Room Air 11/20/17 00:00 Room Air Last Recorded Weight-Kilograms: 108.400 Physical Exam Constitutional: General Apperance: heathly-appearing Level of Distress: NAD Ambulation: ambulating normally Lungs: Auscultation: breath sounds normal Cardiovascular: Heart Auscultation: RRR, no murmurs, tachycardia Extremities: no edema Gen.: No acute distress. Alert and oriented. HEENT: Anicteric sclera. Neck: Thick neck. No appreciable JVD. Hepatic jugular reflux noted however. No bruits. Normal carotid upstrokes bilaterally. Cardiac: PMI was nonpalpable. No ventricular heave. Regular rate and rhythm. Normal S1-S2. S3. Systolic murmur heard throughout. No rub. Pulmonary: Decreased breath sounds throughout, but otherwise clear to auscultation bilaterally without wheezes, rales, or rhonchi. Abdomen: Soft, nontender, nondistended, with normoactive bowel sounds. No bruits noted. Extremities: 2+ radial pulses bilaterally. 2+ posterior tibialis pulses bilaterally. Trace to 1+ bilateral lower extremity edema. No cyanosis. Psychiatric: Affect appears appropriate. Data Laboratory Results: Last 24 Hours Test 11/19/17 16:11 11/20/17 00:12 11/20/17 07:00 Total Creatine Kinase 92 U/L 76 U/L Creatine Kinase MB 1.8 ng/ml 1.6 ng/ml Creatine Kinase MB Ratio 2.0 2.1 Troponin I < 0.015 ng/ml < 0.015 ng/ml White Blood Count 7.74 K/uL Red Blood Count 4.79 M/uL Hemoglobin 14.4 g/dL Hematocrit 41.5 % Mean Corpuscular Volume 86.6 fL Mean Corpuscular Hemoglobin 30.1 pg Mean Corpuscular Hemoglobin Concent 34.7 g/dl RDW Standard Deviation 43.0 fL RDW Coefficient of Variation 13.6 % Platelet Count 150 K/uL Mean Platelet Volume 10.2 fL Sodium Level 138 mmol/L Potassium Level 4.1 mmol/L Chloride Level 105 mmol/L Carbon Dioxide Level 27 mmol/L Anion Gap 6.0 mmol/L Blood Urea Nitrogen 13 mg/dl Creatinine 0.81 mg/dl Est Creatinine Clear Calc Drug Dose 111.8 ml/min Estimated GFR () 108.9 Estimated GFR (Non- 93.9 BUN/Creatinine Ratio 16.3 Random Glucose 107 mg/dl Calcium Level 8.4 mg/dl Telemetry reviewed: Sinus rhythm and sinus tachycardia, heart rate quite elevated at times but sinus mechanism Assessment and Plan 1. Cardiomyopathy: Probably nonischemic, but we need to exclude ischemic heart disease. He is scheduled for catheterization Wednesday. His medications are being titrated, so far he is tolerating them well. We will probably have to go up on his beta-ralph but I am not going to do it today as this is his first day of 50 mg metoprolol succinate. He is still tachycardic so we can may be increased tomorrow if he feels well. 2. Congestive heart failure: Clinically he is doing very well on his current regimen and does not have shortness of breath or orthopnea. Thank you for allowing me to participate in his care.
[2017-11-21] VITALS (7 sets, daily range): BP systolic 92–132; BP diastolic 61–78; PULSE 88–95; TEMP 36.4–36.9; O2SAT 95–98
[2017-11-21 05:58] LABS: HEMATOCRIT 41.7 % (42-52); HEMOGLOBIN 14.8 g/dL (14.0-18.0); MEAN CORPUSCULAR HEMOGLOBIN 31.2 pg (25-34); MEAN CORPUSCULAR HGB CONC 35.5 g/dl (32-36); PLATELET COUNT 171 K/uL (130-400); RED CELL DISTRIBUTION WIDTH CV 13.5 % (11.5-14.5); RED CELL DISTRIBUTION WIDTH SD 43.3 fL (36.4-46.3); WHITE BLOOD COUNT 9.13 K/uL (4.8-10.8)
[2017-11-21 05:59] LABS: MEAN PLATELET VOLUME 10.8 fL (7.4-10.4)
[2017-11-21] MEDS: LEVOTHYROXINE 150 MCG TAB PO SCH (06:05)
[2017-11-21 06:30] LABS: CALCIUM 8.4 mg/dl (8.5-10.1); CREATININE 0.89 mg/dl (0.60-1.40); POTASSIUM 4.2 mmol/L (3.5-5.1)
[2017-11-21] MEDS: SACUBITRIL-VALSARTAN 24-26 MG TAB PO SCH ×3 (07:48→20:56)
[2017-11-21] MEDS: FUROSEMIDE INJ 40 MG in SYRINGE 0 ML IV SCH (07:49)
[2017-11-21] MEDS: MULTIVITAMIN TAB PO SCH (07:49)
[2017-11-21] MEDS: METOPROLOL SUCC 25MG EXT REL TAB PO SCH (07:49)
[2017-11-21] MEDS: ASPIRIN 81 MG ECTAB PO SCH (07:50)
[2017-11-21] MEDS: ENOXAPARIN 40 MG/0.4 ML SYR SC SCH (07:51)
[2017-11-21] MEDS ORDERED: METOPROLOL SUCC 25MG EXT REL TAB PO STA (11:18)
--- NOTE | 2017-11-21 11:18 | Cardiology Follow-Up ---
Subjective Date of Service: November 21, 2017. Pt evaluation today including: conversation w/ patient, physical exam, lab review, review of studies, review of inpatient medication list History of Present Illness He continues to feel very well, evidently during the night he was told that his blood pressure was low but he did not feel it. He is tolerating his medications very well symptomatically. He has no shortness of breath. Social History Smoking Status: Former Smoker (quit about 30 years ago) History of Alcohol Use: No Review of Systems Respiratory: No shortness of breath Cardiac: No chest pain Medications Cardiovascular: Item Value Date Time Sacubitril/ 1 tab 11/21/17 0800 Valsartan BID/PO (Entresto 24-26 Mg) Furosemide 40 mg/ 4 ml @ 4 mls/min 11/20/17 0900 Syringe DAILY/IV 11/21/17 0749 Aspirin 81 mg 11/20/17 0900 (Ecotrin Tab) DAILY/PO 11/21/17 0750 Metoprolol 50 mg 11/20/17 0900 Succinate DAILY/PO 11/21/17 0749 (Toprol Xl Tab) Enoxaparin Sodium 40 mg 11/19/17 1300 (Lovenox Inj) DAILY/SC 11/21/17 0751 Objective Vital Signs Past 12 Hours Date Time Temp Pulse Resp B/P (MAP) Pulse Ox O2 Delivery O2 Flow Rate FiO2 11/21/17 08:00 Room Air 11/21/17 07:14 36.6 89 18 132/77 (95) 95 Room Air 11/21/17 04:00 Room Air 11/21/17 03:40 36.7 89 18 102/68 (79) 98 Room Air 11/21/17 00:00 Room Air 11/20/17 23:43 36.6 86 18 95/64 (74) 98 Room Air Last Recorded Weight-Kilograms: 108.500 Physical Exam Constitutional: General Apperance: heathly-appearing Level of Distress: NAD Ambulation: ambulating normally Lungs: Auscultation: breath sounds normal Cardiovascular: Heart Auscultation: RRR, no murmurs, tachycardia Extremities: no edema Gen.: No acute distress. Alert and oriented. HEENT: Anicteric sclera. Neck: Thick neck. No appreciable JVD. Hepatic jugular reflux noted however. No bruits. Normal carotid upstrokes bilaterally. Cardiac: PMI was nonpalpable. No ventricular heave. Regular rate and rhythm. Normal S1-S2. S3. Systolic murmur heard throughout. No rub. Pulmonary: Decreased breath sounds throughout, but otherwise clear to auscultation bilaterally without wheezes, rales, or rhonchi. Abdomen: Soft, nontender, nondistended, with normoactive bowel sounds. No bruits noted. Extremities: 2+ radial pulses bilaterally. 2+ posterior tibialis pulses bilaterally. Trace to 1+ bilateral lower extremity edema. No cyanosis. Psychiatric: Affect appears appropriate. Data Laboratory Results: Last 24 Hours Test 11/21/17 05:12 White Blood Count 9.13 K/uL Red Blood Count 4.74 M/uL Hemoglobin 14.8 g/dL Hematocrit 41.7 % Mean Corpuscular Volume 88.0 fL Mean Corpuscular Hemoglobin 31.2 pg Mean Corpuscular Hemoglobin Concent 35.5 g/dl RDW Standard Deviation 43.3 fL RDW Coefficient of Variation 13.5 % Platelet Count 171 K/uL Mean Platelet Volume 10.8 fL Sodium Level 138 mmol/L Potassium Level 4.2 mmol/L Chloride Level 105 mmol/L Carbon Dioxide Level 27 mmol/L Anion Gap 6.0 mmol/L Blood Urea Nitrogen 17 mg/dl Creatinine 0.89 mg/dl Est Creatinine Clear Calc Drug Dose 101.8 ml/min Estimated GFR () 104.7 Estimated GFR (Non- 90.4 BUN/Creatinine Ratio 19.7 Random Glucose 115 mg/dl Calcium Level 8.4 mg/dl EKG: ECG this morning shows sinus rhythm with PVCs, heart rate 97. Telemetry reviewed: Sinus rhythm, heart rate better but still somewhat elevated. PVCs, brief runs of PAT. Assessment and Plan 1. Cardiomyopathy: Probably nonischemic, but we need to exclude ischemic heart disease. He is scheduled for catheterization tomorrow. His medications are being titrated, so far he is tolerating them well. We should be able to go up on his beta-ralph today, I will increase to 75 mg metoprolol succinate. His heart rate is still somewhat elevated so we may be able to increase it again tomorrow if he feels well. 2. Congestive heart failure: Clinically he is doing very well on his current regimen and does not have shortness of breath or orthopnea. Thank you for allowing me to participate in his care.
--- NOTE | 2017-11-21 13:43 | Progress Note ---
Subjective Date of Service: November 21, 2017. Subjective Pt evaluation today including: conversation w/ patient, physical exam, lab review, conversation w/ wig sales consultant, review of inpatient medication list Pain: no pain PO Intake: adequate Voiding: no voiding problems patient feels well, breathing easy, urinating a lot with Lasix discussed with Dr. Espinosa reviewed labs, Cr stable at 0.8 reviewed medications Problem List Medical Problems: (1) Frequent PVCs Status: Acute (2) Pulmonary edema Status: Acute Review of Systems All Other Systems: Reviewed and Negative Medications Current Inpatient Medications Medications (Trade) Dose Ordered Sig/Kamila Route Start Time Stop Time Status Last Admin Dose Admin Enoxaparin Sodium (Lovenox Inj) 40 mg DAILY SC 11/19/17 13:00 12/19/17 12:59 11/21/17 07:51 40 MG Acetaminophen (Tylenol Tab) 650 mg Q4H PRN PO 11/19/17 10:30 12/19/17 10:29 Al Hydrox/Mg Hydrox/Simethicone (Maalox Max Susp) 15 ml Q4H PRN PO 11/19/17 10:30 12/19/17 10:29 Magnesium Hydroxide (Milk Of Magnesia Susp) 30 ml Q12H PRN PO 11/19/17 10:30 12/19/17 10:29 Ondansetron HCl (Zofran Inj) 4 mg Q6H PRN IV 11/19/17 10:30 12/19/17 10:29 Polyethylene (Miralax Powder Packet) 17 gm DAILY PRN PO 11/19/17 10:30 12/19/17 10:29 Furosemide 40 mg/ Syringe 4 ml @ 4 mls/min DAILY IV 11/20/17 09:00 12/20/17 08:59 11/21/17 07:49 4 MLS/MIN Aspirin (Ecotrin Tab) 81 mg DAILY PO 11/20/17 09:00 12/20/17 08:59 11/21/17 07:50 81 MG Levothyroxine Sodium (Synthroid Tab) 150 mcg DAILYBB PO 11/20/17 06:30 12/20/17 06:29 11/21/17 06:05 150 MCG Multivitamins (Multivitamin Tab) 1 tab DAILY PO 11/20/17 09:00 12/20/17 08:59 11/21/17 07:49 1 TAB Sacubitril/ Valsartan (Entresto 24-26 Mg) 1 tab BID PO 11/21/17 08:00 12/21/17 07:59 11/21/17 07:48 1 TAB Metoprolol Succinate (Toprol Xl Tab) 75 mg QAM PO 11/22/17 09:00 12/22/17 08:59 Objective Vital Signs Date Time Temp Pulse Resp B/P (MAP) Pulse Ox O2 Delivery O2 Flow Rate FiO2 11/21/17 12:00 Room Air 11/21/17 11:19 36.5 95 18 111/78 (89) 96 Room Air 11/21/17 08:00 Room Air 11/21/17 07:14 36.6 89 18 132/77 (95) 95 Room Air 11/21/17 04:00 Room Air 11/21/17 03:40 36.7 89 18 102/68 (79) 98 Room Air 11/21/17 00:00 Room Air 11/20/17 23:43 36.6 86 18 95/64 (74) 98 Room Air 11/20/17 20:00 Room Air 11/20/17 19:33 36.4 95 18 108/74 (85) 97 Room Air 11/20/17 16:29 36.4 91 16 104/75 (85) 98 Room Air 11/20/17 16:00 Room Air Physical Exam General Appearance: WD/WN, no apparent distress Eyes: normal inspection, EOMI, sclerae normal ENT: normal ENT inspection, hearing grossly normal, pharynx normal Neck: supple, no adenopathy, no JVD, trachea midline Respiratory/Chest: chest non-tender, lungs clear, normal breath sounds, no respiratory distress, no accessory muscle use Cardiovascular: regular rate, rhythm, no edema, no gallop, no JVD, no murmur Abdomen: normal bowel sounds, non tender, soft, no organomegaly Extremities: normal range of motion, non-tender, normal inspection, no pedal edema, no calf tenderness, pelvis stable Neurologic/Psychiatric: ct scan tech II-XII nml as tested, no motor/sensory deficits, alert, normal mood/affect, oriented x 3 Skin: normal color, warm/dry, no rash Laboratory Results Last 24 Hours Test 11/21/17 05:12 White Blood Count 9.13 K/uL Red Blood Count 4.74 M/uL Hemoglobin 14.8 g/dL Hematocrit 41.7 % Mean Corpuscular Volume 88.0 fL Mean Corpuscular Hemoglobin 31.2 pg Mean Corpuscular Hemoglobin Concent 35.5 g/dl RDW Standard Deviation 43.3 fL RDW Coefficient of Variation 13.5 % Platelet Count 171 K/uL Mean Platelet Volume 10.8 fL Sodium Level 138 mmol/L Potassium Level 4.2 mmol/L Chloride Level 105 mmol/L Carbon Dioxide Level 27 mmol/L Anion Gap 6.0 mmol/L Blood Urea Nitrogen 17 mg/dl Creatinine 0.89 mg/dl Est Creatinine Clear Calc Drug Dose 101.8 ml/min Estimated GFR () 104.7 Estimated GFR (Non- 90.4 BUN/Creatinine Ratio 19.7 Random Glucose 115 mg/dl Calcium Level 8.4 mg/dl Assessment and Plan 62 yo male presented with acute onset of orthopnea and dyspnea on exertion, started in the middle of the night. Found to have EF of 25-30% which was new finding on echo - Acute systolic heart failure: new onset, EF is 25-30% continue Toprol, titrate up to 75mg daily today, may go up further if HR still in 80-90's tomorrow start Entresto today per cardiology continue Lasix 40mg IV daily, weight down 4kg today, Cr stable, -1580 yesterday fluid restrict to 1800cc daily plan for diagnostic heart catheterization on Wednesday improve volume status over the weekend - Acute respiratory failure: due to pulmonary edema, resolved with diuresis - Hypothyroidism with low TSH due to high dose of Synthroid was addressed by PCP two weeks ago, will follow up with PCP - HTN: BP low normal, continue Toprol 75mg daily, Entresto started today - DVT prophylaxis: Lovenox heart cath tomorrow, further instructions from cardiology after cath
[2017-11-22] VITALS (16 sets, daily range): BP systolic 87–109; BP diastolic 53–71; PULSE 80–98; TEMP 36.4–36.6; O2SAT 93–97
[2017-11-22 05:34] LABS: HEMATOCRIT 42.3 % (42-52); HEMOGLOBIN 14.8 g/dL (14.0-18.0); MEAN CELL VOLUME 87.9 fL (80-100); MEAN CORPUSCULAR HEMOGLOBIN 30.8 pg (25-34); MEAN PLATELET VOLUME 10.6 fL (7.4-10.4); PLATELET COUNT 154 K/uL (130-400); RED CELL DISTRIBUTION WIDTH CV 13.6 % (11.5-14.5); RED CELL DISTRIBUTION WIDTH SD 43.7 fL (36.4-46.3); WHITE BLOOD COUNT 8.22 K/uL (4.8-10.8)
[2017-11-22] MEDS: LEVOTHYROXINE 150 MCG TAB PO SCH (05:41)
[2017-11-22 05:53] LABS: CALCIUM 8.1 mg/dl (8.5-10.1); CREATININE 0.93 mg/dl (0.60-1.40); POTASSIUM 4.4 mmol/L (3.5-5.1)
[2017-11-22] MEDS: METOPROLOL SUCC 25MG EXT REL TAB PO SCH (07:42)
[2017-11-22] MEDS: MULTIVITAMIN TAB PO SCH (07:42)
[2017-11-22] MEDS: ASPIRIN 81 MG ECTAB PO SCH (07:43)
[2017-11-22] MEDS: FUROSEMIDE INJ 40 MG in SYRINGE 0 ML IV SCH (07:43)
[2017-11-22] MEDS: ENOXAPARIN 40 MG/0.4 ML SYR SC SCH (09:00)
[2017-11-22] MEDS: SACUBITRIL-VALSARTAN 24-26 MG TAB PO SCH ×2 (09:16→21:25)
[2017-11-22] MEDS ORDERED: MIDAZOLAM HCL 1 MG/ML 2ML VIAL ONE (13:15)
[2017-11-22] MEDS ORDERED: FENTANYL CITRATE INJ 50 MCG/1 ML 2 ML VIAL ONE (13:15)
[2017-11-22] MEDS ORDERED: HEPARIN SOD (PORCINE) 1000 UNIT/ML 10 ML VIAL ONE (13:16)
[2017-11-22] MEDS ORDERED: NiCARDipine HCL INJ 2.5 MG/ML 10 ML AMP ONE (13:16)
[2017-11-22] MEDS ORDERED: NITROGLYCERIN/D5W 100MCG/ML 20ML SYR ONE (13:18)
[2017-11-22] MEDS ORDERED: LIDOCAINE HCL 1% 20 ML VIAL ONE (13:24)
[2017-11-22] MEDS ORDERED: SODIUM CHLORIDE 0.9% 1000ML 1,000 ML IV SCH (14:56)
--- NOTE | 2017-11-22 14:56 | Post Sedation Assessment ---
Post Sedation Assessment General Date of Sedation November 22, 2017. Vital Signs: Vital Signs Past 12 Hours Date Time Temp Pulse Resp B/P (MAP) Pulse Ox O2 Delivery O2 Flow Rate FiO2 11/22/17 14:42 85 18 101/58 (72) 99 Mask 4 11/22/17 14:33 36.4 88 18 96 11/22/17 12:00 Room Air 11/22/17 11:27 36.4 88 18 100/69 (79) 96 11/22/17 08:00 Room Air 11/22/17 07:05 36.5 98 20 109/70 (83) 97 Room Air 11/22/17 04:00 Room Air 11/22/17 04:00 36.6 86 18 95/66 (76) 97 Room Air Post Procedure Recovery Score Activity: (2) Moves 4 extremities * Respiration: (2) Deep breath/cough Circulation: (2) +/-20% PreAnes Value Consciousness: (2) Fully Awake Oxygen Saturation: (2) > 92% On Room Air Post Anesthesia Score: 10 Discharge Sedation Level of Care: Fast Track Phase II Post Sedation Plan On clinical assessment, the patient appears to have tolerated the sedation without complications. Patient is recovering as anticipated. Patient will continue to be monitored by nursing and may be discharged when sedation discharge criteria are met per below protocol. Upon Completions of procedure and additional 15 minutes continue every 5 minute vital signs and the P.A.R. score; then discharge to a Phase I or Fast Track to Phase II per the following guidelines: * Discharge Patient to appropriate Phase II area if PAR is 8 or greater or return to pre- procedure baseline. The post - procedure orders will be as directed. * If PAR score is less than 8 or not return to pre-procedure baseline then patient will follow Phase I monitoring till PAR is reached for Phase II. The Phase I may be done in procedure room or may call to secure a Phase I area. * If naloxone or flumazenil are used for reversal, hold in Phase I for an additional 60 -120 minutes before discharge to Phase II. Please call the Sedation Physician to re-evaluate and complete post-note for discharge to Phase II area. Do NOT discharge from procedure sedation or Phase 1 until post- sedation evaluation note is complete by procedure /sedation MD Sedation Discharge Instructions to be given to the patient at discharge to home.
--- NOTE | 2017-11-22 14:56 | Pre Sedation Assessment ---
Pre Sedation Assessment General Date of Sedation: November 22, 2017. Vital Signs Past 12 Hours Date Time Temp Pulse Resp B/P (MAP) Pulse Ox O2 Delivery O2 Flow Rate FiO2 11/22/17 14:42 85 18 101/58 (72) 99 Mask 4 11/22/17 14:33 36.4 88 18 96 11/22/17 12:00 Room Air 11/22/17 11:27 36.4 88 18 100/69 (79) 96 11/22/17 08:00 Room Air 11/22/17 07:05 36.5 98 20 109/70 (83) 97 Room Air 11/22/17 04:00 Room Air 11/22/17 04:00 36.6 86 18 95/66 (76) 97 Room Air Review Cardiovascular: regular rate, rhythm, no edema Lungs: chest non-tender, lungs clear Pre-Sedation Airway Assessment Smoking Status: Former Smoker (quit about 30 years ago) Hx of Sleep Apnea: No Hx of difficult intubation: No Short Thick Neck: No Thyro-mental Distance: > 3 Finger Breadths Oral Cavity: Dentures Mallampati Classification: Class I ASA Classification: Class II NPO Status Date of Last Intake of Fluids: November 21, 2017 Time of Last Intake of Fluids: 2199 Date of Last Intake of Solids: November 21, 2017 Time of Last Intake of Solids: 2199 Procedure Planning Contraindications for Sedation: None Current Medications Reviewed: Yes Notes The planned sedation has been discussed with the patient. Informed Consent was obtained. I have identified the patient, determined the appropriateness of sedation and have assessed the patient immediately prior to the procedure. All medicine(s) and interventions are by my order.
--- NOTE | 2017-11-22 14:59 | [facility] Post Operative Brief Note ---
Preliminary Procedure Note Procedure Date November 22, 2017. Pre-Procedure Diagnosis Cardiomyopathy AUC Score 7 Post-Procedure Diagnosis Normal Coronary Arteries, Normal Intracardiac Pressures Procedure(s) Performed Coronary Angiography, Left Heart Cath, Right Heart Cath Email Marketing Processor Poli Custom Frame Assembler(s) Contino Estimated Blood Loss 10 Preliminary Findings Normal coronary arteries. Normal biventricular filling pressures. Preserved cardiac output. Recommendations Medical therapy and/or Counseling Specimens None Procedural Complication(s) None Disposition PCU
--- NOTE | 2017-11-22 15:10 | Cardiac Catheterization ---
Procedure Note Procedure Date November 22, 2017. Pre-Procedure Diagnosis Cardiomyopathy AUC Score 7 Post-Procedure Diagnosis Normal Coronary Arteries, Normal Intracardiac Pressures Procedure(s) Performed Coronary Angiography, Left Heart Cath, Right Heart Cath Aircraft Servicer gloria Tunnel Inspector(s) contino Estimated Blood Loss 10 Medication(s) Fentanyl, Heparin, Nicardipine, Nitroglycerin, Versed, Lidocaine 1% Summary of Findings Indication: Cardiomyopathy/Acute systolic heart failure Access: 6Fr right radial artery; 6Fr right antecubital vein. Catheters: [place]; JL3.5, pigtail; 6Fr swan Findings: LM - Angiographically normal LAD - 20% mid segment disease; distal luminal irregularities to apex. 1st diagonal moderate caliber with luminal irregularities. Circumflex - Moderate caliber, angiographically normal RCA - Large caliber, dominant, 20% late-proximal stenosis, distal luminal irregularities RA 5 RV 27/5 PA 28/10 (16) PAWP 9 LV 13 PaSat 64% AoSat 93% [place] CO/CI 4.8/2.1 Thermo CO/CI 5.1/2.3 Arterial Closure: TR Band Summary: 1. Essentially normal coronary arteries 2. Normal biventricular filling pressures. 3. Preserved cardiac output. 4. Normal pulmonary artery pressures. Recommendations: Continued ASCVD risk factor modification Guideline directed medical therapy for non-ischemic cardiomyopathy. Hemodynamics Rest Ao: 101/64/80 Final Ao: 86/53/69 LV: 94/13 Recommendations Medical therapy and/or Counseling Specimens None Radiation Exposure (mGy) 2244 Contrast (mls) 60 Fluids (cc crystalloids) 80 Drains None Anesthesia Moderate Procedural Complication(s) None Disposition PCU ACC Data Cardiac Status Clinical evaluation leading to the procedure CAD Presntation: Sx unlikely to be ischemic Anginal Classification: No symptoms Heart Failure: No, NYHA Class: CCS IV Cardiogenic Shock w/in 24Hrs: No Cardiac Arrest w/in 24Hrs: No Imaging studies past 6 months: Yes Stress studies past 6 months: No Closure Device Percutaneous Entry Location: Radial Closure Device: Radial Band Recommendations: Medical therapy and/or Counseling Intraprocedure Events Significant Dissection: No Perforation: No
--- NOTE | 2017-11-22 15:18 | Cardiology Follow-Up ---
Subjective Subjective Date of Service: November 22, 2017. Pt evaluation today including: conversation w/ patient, conversation w/ family , physical exam, chart review, lab review, review of studies, review of inpatient medication list Additional Details: Feeling well. Denies shortness of breath or chest pain. Tele reviewed -- occasional PVCs Problem List Medical Problems: (1) Frequent PVCs Status: Acute (2) Pulmonary edema Status: Acute Review of Systems Respiratory: No shortness of breath Cardiac: No chest pain Objective Vital Signs Last Vital Signs Documentation Date Time Temp Pulse Resp B/P (MAP) Pulse Ox O2 Delivery O2 Flow Rate FiO2 11/22/17 14:42 85 18 101/58 (72) 99 Mask 4 11/22/17 14:33 36.4 Physical Exam: General Appearance: no apparent distress ENT: pharynx normal Neck: supple, no JVD Respiratory/Chest: lungs clear, normal breath sounds, no respiratory distress Cardiovascular: regular rate, rhythm, no JVD, + systolic murmur (2/6 HARJIT at RUSB) Abdomen: normal bowel sounds, non tender, soft Extremities: no pedal edema, no calf tenderness Neurologic/Psychiatric: no motor/sensory deficits, alert, normal mood/affect, oriented x 3 Skin: normal color, warm/dry, no rash Assessment and Plan 1. Acute systolic heart failure 2. NICM 3. Frequent PVCs -- asymptomatic 4. Hypothyroidism Cardiac cath today negative for significant CAD. Filling pressures and cardiac output normal. Breathing near baseline and no significant congestion on exam. -- Continue Toprol XL and entresto -- Transition diuretics to PO -- lasix 40mg daily -- continue ASA -- From a cardiac standpoint could be possibly discharged later today after TR Band care/radial artery hemostasis -- CHF clinic follow-up later this week. Medications: Current Inpatient Medications Medications (Trade) Dose Ordered Sig/Kamila Route Start Time Stop Time Status Last Admin Dose Admin Enoxaparin Sodium (Lovenox Inj) 40 mg DAILY SC 11/19/17 13:00 12/19/17 12:59 11/21/17 07:51 40 MG Acetaminophen (Tylenol Tab) 650 mg Q4H PRN PO 11/19/17 10:30 12/19/17 10:29 Al Hydrox/Mg Hydrox/Simethicone (Maalox Max Susp) 15 ml Q4H PRN PO 11/19/17 10:30 6/17/18 10:29 Magnesium Hydroxide (Milk Of Magnesia Susp) 30 ml Q12H PRN PO 11/19/17 10:30 12/19/17 10:29 Ondansetron HCl (Zofran Inj) 4 mg Q6H PRN IV 11/19/17 10:30 12/19/17 10:29 Polyethylene (Miralax Powder Packet) 17 gm DAILY PRN PO 11/19/17 10:30 12/19/17 10:29 Furosemide 40 mg/ Syringe 4 ml @ 4 mls/min DAILY IV 11/20/17 09:00 12/20/17 08:59 11/22/17 07:43 4 MLS/MIN Aspirin (Ecotrin Tab) 81 mg DAILY PO 11/20/17 09:00 12/20/17 08:59 11/22/17 07:43 81 MG Levothyroxine Sodium (Synthroid Tab) 150 mcg DAILYBB PO 11/20/17 06:30 12/20/17 06:29 11/22/17 05:41 150 MCG Multivitamins (Multivitamin Tab) 1 tab DAILY PO 11/20/17 09:00 12/20/17 08:59 11/22/17 07:42 1 TAB Sacubitril/ Valsartan (Entresto 24-26 Mg) 1 tab BID PO 11/21/17 08:00 12/21/17 07:59 11/22/17 09:16 1 TAB Metoprolol Succinate (Toprol Xl Tab) 75 mg QAM PO 11/22/17 09:00 12/22/17 08:59 11/22/17 07:42 75 MG Lab Results: 11/22/17 05:09 11/22/17 05:09 Test 11/22/17 05:09 Red Blood Count 4.81 M/uL (4.7-6.1) Mean Corpuscular Volume 87.9 fL (80-100) Mean Corpuscular Hemoglobin 30.8 pg (25-34) Mean Corpuscular Hemoglobin Concent 35.0 g/dl (32-36) RDW Standard Deviation 43.7 fL (36.4-46.3) RDW Coefficient of Variation 13.6 % (11.5-14.5) Mean Platelet Volume 10.6 fL (7.4-10.4) Anion Gap 3.0 mmol/L (3-11) Est Creatinine Clear Calc Drug Dose 97.4 ml/min Estimated GFR () 100.2 Estimated GFR (Non- 86.5 BUN/Creatinine Ratio 16.8 (10-20) Calcium Level 8.1 mg/dl (8.5-10.1)
--- NOTE | 2017-11-22 16:24 | Progress Note ---
Subjective Date of Service: November 22, 2017. Subjective Pt evaluation today including: conversation w/ patient, conversation w/ family , physical exam, chart review, lab review, review of studies, conversation w/ content management consultant, review of inpatient medication list Doing well, no chest pain, no other complaint, Problem List Medical Problems: (1) Frequent PVCs Status: Acute (2) Pulmonary edema Status: Acute Review of Systems Constitutional: No fever, No chills, No sweats, No weight loss, No weakness, No fatigue, No problem reported Eyes: No worsening of vision, No eye pain, No redness, No discharge, No diplopia ENT: No hearing loss, No unusual epistaxis, No nasal symptoms, No sore throat, No tinnitus, No dental problems, No trouble swallowing Respiratory: No cough, No sputum, No wheezing, No shortness of breath, No dyspnea on exertion, No dyspnea at rest, No hemoptysis Cardiac: No chest pain, No orthopnea, No PND, No edema, No claudication, No palpitations Abdomen: No pain, No nausea, No vomiting, No diarrhea, No constipation Musculoskeletal: No joint pain, No muscle pain, No swelling, No calf pain Male : No dysuria, No urinary frequency, No incontinence, No nocturia more than once/night, No slowing stream, No hematuria Neurologic: No memory loss, No paralysis, No weakness, No numbness/tingling, No vertigo, No balance problems Psychiatric: No depression symptoms, No anhedonism, No anxiety, No insomnia, No substance abuse Heme: No abnormal bleeding/bruising, No clotting problems, No swollen lymph nodes, No night sweats Endo: No fatigue, No excessive thirst, No excessive urination Skin: No rash, No itch, No new/changing skin lesions, No color change, No bleeding Objective Vital Signs Date Time Temp Pulse Resp B/P (MAP) Pulse Ox O2 Delivery O2 Flow Rate FiO2 11/22/17 15:45 83 12 106/71 (83) 93 Room Air 11/22/17 15:30 36.5 86 20 103/71 (82) 94 Room Air 86 11/22/17 15:30 86 12 103/71 (82) 93 Room Air 11/22/17 15:15 86 12 102/71 (81) 95 Room Air 11/22/17 14:57 80 18 116/50 (72) 95 Room Air 11/22/17 14:42 85 18 101/58 (72) 99 Mask 4 11/22/17 14:33 36.4 88 18 96 11/22/17 12:00 Room Air 11/22/17 11:27 36.4 88 18 100/69 (79) 96 11/22/17 08:00 Room Air 11/22/17 07:05 36.5 98 20 109/70 (83) 97 Room Air 11/22/17 04:00 Room Air 11/22/17 04:00 36.6 86 18 95/66 (76) 97 Room Air 11/22/17 00:00 Room Air 11/21/17 23:04 36.9 90 18 92/61 (71) 95 Room Air 11/21/17 20:00 Room Air 11/21/17 19:31 36.5 91 18 98/67 (77) 96 Room Air 11/21/17 16:36 89 100/69 (79) Physical Exam General Appearance: WD/WN, no apparent distress, + obese Eyes: normal inspection, PERRL, EOMI, sclerae normal ENT: normal ENT inspection, hearing grossly normal, pharynx normal Neck: supple, no adenopathy, thyroid normal, no JVD, no carotid bruits, trachea midline Respiratory/Chest: chest non-tender, lungs clear, normal breath sounds, no respiratory distress, no accessory muscle use Cardiovascular: regular rate, rhythm, no edema, no gallop, no JVD, no murmur Abdomen: normal bowel sounds, non tender, soft, no organomegaly, no pulsatile mass Extremities: normal range of motion, non-tender, normal inspection, no pedal edema, no calf tenderness, normal capillary refill, pelvis stable 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, no motor/sensory deficits, alert, normal mood/affect, oriented x 3 Skin: normal color, warm/dry, no rash Lymphatic: no adenopathy Laboratory Results Last 24 Hours Test 11/22/17 05:09 11/22/17 14:11 11/22/17 14:15 White Blood Count 8.22 K/uL Red Blood Count 4.81 M/uL Hemoglobin 14.8 g/dL Hematocrit 42.3 % Mean Corpuscular Volume 87.9 fL Mean Corpuscular Hemoglobin 30.8 pg Mean Corpuscular Hemoglobin Concent 35.0 g/dl RDW Standard Deviation 43.7 fL RDW Coefficient of Variation 13.6 % Platelet Count 154 K/uL Mean Platelet Volume 10.6 fL Sodium Level 138 mmol/L Potassium Level 4.4 mmol/L Chloride Level 105 mmol/L Carbon Dioxide Level 30 mmol/L Anion Gap 3.0 mmol/L Blood Urea Nitrogen 16 mg/dl Creatinine 0.93 mg/dl Est Creatinine Clear Calc Drug Dose 97.4 ml/min Estimated GFR () 100.2 Estimated GFR (Non- 86.5 BUN/Creatinine Ratio 16.8 Random Glucose 111 mg/dl Calcium Level 8.1 mg/dl Bedside Blood Gas pH (LAB) 7.42 7.42 Bedside Blood Gas pCO2 (LAB) 38 mmHg 39 mmHg Bedside Blood Gas pO2 (LAB) 66 mmHg 33 mmHg Bedside Blood Gas HCO3 (LAB) 24 meq/L 25 meq/L Bedside Blood Gas Total CO2 25 mEq/l 26 mEq/l Bedside Blood Gas Base Excess (LAB) 0.0 meq/L 1.0 meq/L Bedside Blood Gas O2 Saturation 93.0 % 64.0 % Assessment and Plan 62 yo male admitted on November 19, 2017 with acute onset of orthopnea and dyspnea on exertion Found to have EF of 25-30% which was new finding Acute systolic heart failure: new onset, EF is 25-30% continue Toprol, titrate up to 75mg daily today, may go up further if HR still in 80-90's tomorrow Continue Entresto per cardiology continue Lasix 40mg IV daily, weight down 4kg today, Cr stable, fluid restrict to 1800cc daily plan for diagnostic heart catheterization today Acute respiratory failure: due to pulmonary edema, resolved with diuresis Hypothyroidism with low TSH due to high dose of Synthroid was addressed by PCP two weeks ago, will follow up with PCP HTN: BP low normal, continue Toprol and Entresto DVT prophylaxis: Lovenox I discussed with patient and patient's family about patient's conditions, The patient and family had multiple questions which were answered to their full satisfaction. Continued [facility] stay due to: multiple IV medications needed Discharge planning: home
[2017-11-23 03:49] VITALS: BP 93/56; PULSE 80; TEMP 36.3; O2SAT 98
[2017-11-23] MEDS: LEVOTHYROXINE 150 MCG TAB PO SCH (06:37)
[2017-11-23 07:40] VITALS: BP 98/67; PULSE 80; TEMP 36.6; O2SAT 98
[2017-11-23] MEDS: SACUBITRIL-VALSARTAN 24-26 MG TAB PO SCH (09:14)
[2017-11-23] MEDS: FUROSEMIDE INJ 40 MG in SYRINGE 0 ML IV SCH (09:17)
--- NOTE | 2017-11-23 09:32 | Cardiology Follow-Up ---
Subjective Date of Service: November 23, 2017. Pt evaluation today including: conversation w/ patient, physical exam, lab review, review of inpatient medication list History of Present Illness He is feeling well today, no chest discomfort, no shortness of breath. No discomfort at his right arm cath site. Social History Smoking Status: Former Smoker (quit about 30 years ago) History of Alcohol Use: No Review of Systems Respiratory: No cough, No sputum, No wheezing, No shortness of breath, No dyspnea on exertion, No dyspnea at rest, No hemoptysis Cardiac: No chest pain, No orthopnea, No PND, No edema, No claudication, No palpitations Medications Cardiovascular: Item Value Date Time Metoprolol 75 mg 11/22/17 0900 Succinate QAM/PO 11/22/17 0742 (Toprol Xl Tab) Sacubitril/ 1 tab 11/21/17 0800 Valsartan BID/PO 11/23/17 0914 (Entresto 24-26 Mg) Furosemide 40 mg/ 4 ml @ 4 mls/min 11/20/17 0900 Syringe DAILY/IV 11/23/17 0917 Aspirin 81 mg 11/20/17 0900 (Ecotrin Tab) DAILY/PO 11/22/17 0743 Enoxaparin Sodium 40 mg 11/19/17 1300 (Lovenox Inj) DAILY/SC Objective Vital Signs Past 12 Hours Date Time Temp Pulse Resp B/P (MAP) Pulse Ox O2 Delivery O2 Flow Rate FiO2 11/23/17 07:40 36.6 80 18 98/67 (77) 98 Room Air 11/23/17 04:26 Room Air 11/23/17 03:49 36.3 80 20 93/56 (68) 98 Room Air 11/23/17 00:09 Room Air 11/22/17 23:47 36.5 87 20 99/68 (78) 97 Room Air 11/22/17 21:53 80 18 89/55 (66) Last Recorded Weight-Kilograms: 108.200 Physical Exam Constitutional: General Apperance: heathly-appearing Level of Distress: NAD Ambulation: ambulating normally Lungs: Auscultation: breath sounds normal Cardiovascular: Heart Auscultation: RRR, no murmurs, tachycardia Extremities: no edema Data Laboratory Results: Last 24 Hours Test 11/22/17 14:11 11/22/17 14:15 Bedside Blood Gas pH (LAB) 7.42 7.42 Bedside Blood Gas pCO2 (LAB) 38 mmHg 39 mmHg Bedside Blood Gas pO2 (LAB) 66 mmHg 33 mmHg Bedside Blood Gas HCO3 (LAB) 24 meq/L 25 meq/L Bedside Blood Gas Total CO2 25 mEq/l 26 mEq/l Bedside Blood Gas Base Excess (LAB) 0.0 meq/L 1.0 meq/L Bedside Blood Gas O2 Saturation 93.0 % 64.0 % Assessment and Plan 1. Cardiomyopathy: Nonischemic. We can continue with Entresto and metoprolol succinate. We will titrate these as an outpatient, for discharge I would send him home on his current dose of Entresto and with his blood pressure under 100 systolic I would hold off further titrating his metoprolol succinate and send him home on his current dose. 2. Congestive heart failure: Clinically he is doing well with no significant heart failure signs or symptoms currently. We need to arrange heart failure follow-up as per protocol. Thank you for allowing me to participate in his care.
[2017-11-23] MEDS: METOPROLOL SUCC 25MG EXT REL TAB PO SCH (09:56)
[2017-11-23] MEDS: MULTIVITAMIN TAB PO SCH (09:57)
[2017-11-23] MEDS: ASPIRIN 81 MG ECTAB PO SCH (09:57)
[2017-11-23] MEDS ORDERED: TPRSR25 PO (11:50)
[2017-11-23] MEDS ORDERED: SACU1TAB PO (11:50)
--- NOTE | 2017-11-23 11:50 | Discharge Instructions ---
Discharge Instructions Date of Service November 23, 2017. Admission Reason for Admission: Congestive Heart Failure (Chf) Discharge Discharge Diagnosis / Problem: dyspnea on exertion Found to cardiomyopathy with LVEF EF of 25-30% Discharge Goals Goal(s): Decrease discomfort, Improve function, Increase independence, Improve disease control, Improve nutritional status, Learn about illness, Diagnostic testing, Therapeutic intervention, Prevent Disease Progression, Specific goals Activity Recommendations Activity Limitations: as noted below Instructions / Follow-Up Instructions / Follow-Up you have cardiomyopathy with Acute systolic heart failure, EF is 25-30% you are on new medicine of Toprol, and Entresto , this need to be adjusted by your winding machine operator will continue fluid restrict to 1800cc daily, and give you lasix 20mg po daily, this medicine need to be adjusted by pcp or winding machine operator, need to labs of BMP, mag checked in the follow up visit with pcp in 1 week because of "is on Lasix" you have heart catheterization done yesterday, follow up winding machine operator as instructed - you need to follow up with your primary care physician in 1 week, - take medication as instructed, never overdose or any misuse, or take with alcohol, because misuse of medicine may cause organ damage or , call me , or your primary care physician if have questions of discharge medicaitons. - call your primary care physician, or go to local emergency room if has any fever/chill, chest pain, shortness of breathing, nausea/vomiting/abdominal pain , facial droop/slurry speech/local weakness, or if has any questions. - fall precaution - diet as instructed - you need to follow up with your subspecialist, such as Dr. Calix, you will get a phone call from their service fro the appointment, but, you need to call if no body call you in 2-3 days. - you should understand that it is important to follow up the above instruction , and "not following the above instruction" may cause delayed or missed care of your medical conditions which may cause permanent organ damage and even . Current Hospital Diet Patient's current hospital diet: AHA Diet (Heart Healthy), Low Sodium Diet (2gm Na) Discharge Diet Recommended Diet: AHA Diet (Heart Healthy) Fluid Restriction: 1500 ml (6 cups) Pending Studies Studies pending at discharge: no Laboratory Results Hemoglobin A1c Test 10/26/17 11:26 Range/Units Estimated Average Glucose 111 mg/dl Hemoglobin A1c 5.5 4.5-5.6 % Lipid Panel Test 10/26/17 11:26 Range/Units Triglycerides Level 80 0-150 mg/dl Cholesterol Level 137 0-200 mg/dl HDL Cholesterol 49 mg/dl Cholesterol/HDL Ratio 2.8 LDL Cholesterol, Calculated 72 mg/dl Medical Emergencies . Who to Call and When: Medical Emergencies: If at any time you feel your situation is an emergency, please call 911 immediately. . Non-Emergent Contact Non-Emergency issues call your: Primary Care Provider, Application Programmer Analyst . . "Provider Documentation" section prepared by Rafa Vasquez. .
[2017-11-23] MEDS ORDERED: FURO20TA PO (11:53)
[2017-11-23 12:13] VITALS: BP 98/67; PULSE 80; TEMP 36.6; O2SAT 98
--- NOTE | 2017-11-23 15:42 | Discharge Summary ---
Discharge Summary Date of Service November 23, 2017. Discharge Summary Admission Date: November 19, 2017 at 10:36 Discharge Date: November 23, 2017 Discharge Disposition: Home Principal Diagnosis: cardiomyopathy with Acute systolic heart failure, EF is 25 -30% Procedures: Left heart cath, Consultations: User Interface Artist Medication Reconciliation New Medications: Furosemide (Lasix) 20 Mg Tab 1 TAB PO DAILY for 30 Days, #30 TAB 5 Refills Metoprolol Succinate (Metoprolol Succinate ER) 25 Mg Tabcr 75 MG PO QAM for 30 Days Sacubitril-Valsartan (Entresto 24-26 mg) 1 Tab Tab 1 TAB PO BID for 30 Days, #60 TAB Continued Medications: Aspirin (Aspirin Ec) 81 Mg Tab 81 MG PO DAILY Levothyroxine Sodium (Synthroid) 150 Mcg Tab 150 MCG PO DAILY, TAB Multivitamin (Multivitamin) Tab 1 TAB PO DAILY, TAB Discontinued Medications: Lisinopril (Zestril) 10 Mg Tab 10 MG PO DAILY, TAB Metoprolol Succ (Toprol Xl) (Toprol-Xl) 25 Mg Tabcr 25 MG PO DAILY, #30 TAB Discharge Exam Doing well, up and walk, no more chest pain Review of Systems: Constitutional: No fever, No chills, No sweats, No weight loss, No weakness , No fatigue, No problem reported Eyes: No worsening of vision, No eye pain, No redness, No discharge, No diplopia, No problem reported ENT: No hearing loss, No unusual epistaxis, No nasal symptoms, No sore throat, No tinnitus, No dental problems, No trouble swallowing, No problem reported Cardiovascular: + edema (Trace edema), No chest pain, No orthopnea, No PND, No claudication, No palpitations, No problem reported Abdomen: No pain, No nausea, No vomiting, No diarrhea, No constipation, No GI bleeding, No problem reported Genitourinary - Male: No hematuria, No dysuria, No urinary frequency, No urinary urgency, No urinary hesitancy, No urinary retention, No urinary incontinence, No penile discharge, No lesions, No impotence, No problem reported Psychiatric: No depression symptoms, No anhedonism, No anxiety, No insomnia , No substance abuse, No problem reported Endocrine: No fatigue, No excessive thirst, No excessive urination, No problem reported Hematologic / Lymphatic: No abnormal bleeding/bruising, No clotting problems , No swollen lymph nodes, No night sweats, No problem reported Integumentary: No rash, No itch, No new/changing skin lesions, No color change, No bleeding, No problem reported Physical Exam: General Appearance: WD/WN, no apparent distress, + obese Eyes: normal inspection, PERRL ENT: normal ENT inspection, hearing grossly normal, TMs normal, pharynx normal Neck: supple Respiratory/Chest: chest non-tender, normal breath sounds, no respiratory distress, no accessory muscle use, + decreased breath sounds Cardiovascular: regular rate, rhythm, no gallop, no JVD, no murmur Abdomen / GI: normal bowel sounds, non tender, soft, no organomegaly, no pulsatile mass Extremities: normal inspection, no calf tenderness, normal capillary refill , + swelling (Trace to 1+) 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, no motor/sensory deficits , alert, normal mood/affect, normal reflexes, oriented x 3 Skin: normal color, warm/dry Hospital Course 62 yo male admitted on November 19, 2017 with acute onset of orthopnea and dyspnea on exertion Found to have EF of 25-30% which was new finding Acute systolic heart failure: new onset, EF is 25-30% Possible cardiomyopathy continue Toprol, titrate up to 75mg daily today, may go up further if HR still in 80-90's tomorrow Continue Entresto per cardiology continue Lasix 40mg IV daily, weight down 4kg today, Cr stable, fluid restrict to 1800cc daily had diagnostic heart catheterization was done, results in below per report: which is negative for significant CAD. Filling pressures and cardiac output normal. Breathing near baseline and no significant congestion on exam. Per recommendation of cardiology, -- Continue Toprol XL and entresto -- Transition diuretics to PO -- lasix 40mg daily, I decreased to 20 p.o. daily -- continue ASA -- CHF clinic follow-up later this week. Acute respiratory failure: due to pulmonary edema, resolved with diuresis Hypothyroidism with low TSH due to high dose of Synthroid was addressed by PCP two weeks ago, will follow up with PCP HTN: BP low normal, continue Toprol and Entresto DVT prophylaxis: Lovenox Discharge instruction you have cardiomyopathy with Acute systolic heart failure, EF is 25-30% you are on new medicine of Toprol, and Entresto , this need to be adjusted by your paraprofessional aide teacher will continue fluid restrict to 1800cc daily, and give you lasix 20mg po daily, this medicine need to be adjusted by pcp or paraprofessional aide teacher, need to labs of BMP, mag checked in the follow up visit with pcp in 1 week because of "is on Lasix" you have heart catheterization done yesterday, follow up paraprofessional aide teacher as instructed - you need to follow up with your primary care physician in 1 week, - take medication as instructed, never overdose or any misuse, or take with alcohol, because misuse of medicine may cause organ damage or , call me , or your primary care physician if have questions of discharge medicaitons. - call your primary care physician, or go to local emergency room if has any fever/chill, chest pain, shortness of breathing, nausea/vomiting/abdominal pain , facial droop/slurry speech/local weakness, or if has any questions. - fall precaution - diet as instructed - you need to follow up with your subspecialist, such as Dr. Calix, you will get a phone call from their service fro the appointment, but, you need to call if no body call you in 2-3 days. - you should understand that it is important to follow up the above instruction , and "not following the above instruction" may cause delayed or missed care of your medical conditions which may cause permanent organ damage and even . Total Time Spent: Greater than 30 minutes This includes examination of the patient, discharge planning, medication reconciliation, and communication with other providers. Discharge Instructions Please refer to the electronic Patient Visit Report (Discharge Instructions) for additional information. Additional Copies To Judah Hebert III, CRNP; Clayton Espinosa M.D.
== END 2017-11-23 13:45 | disposition home or self-care (01) | DRG 286 ==
LOC: C.EDB 08:08 → C.MED 10:36 → ENRESERV 11:18 → C.2T 11-22 15:20
PROVIDERS: ADMIT Internal Medicine; ATTEND Hospitalist
PROC: 4A023N8 Measurement of Cardiac Sampling and Pressure, Bilateral, Percutaneous Approach (ICD-10-PCS; principal; 2017-11-22 12:56)
PROC: B211YZZ Fluoroscopy of Multiple Coronary Arteries using Other Contrast (ICD-10-PCS; principal; 2017-11-22 12:56)
DX: I11.0 Hypertensive heart disease with heart failure (principal); J96.00 Acute respiratory failure, unspecified whether with hypoxia or hypercapnia; I31.3 Pericardial effusion (noninflammatory); I50.21 Acute systolic (congestive) heart failure; I42.9 Cardiomyopathy, unspecified; E03.9 Hypothyroidism, unspecified; K21.9 Gastro-esophageal reflux disease without esophagitis; R73.03 Prediabetes; I35.0 Nonrheumatic aortic (valve) stenosis; Z79.82 Long term (current) use of aspirin; Z87.891 Personal history of nicotine dependence; Z80.42 Family history of malignant neoplasm of prostate; Z83.3 Family history of diabetes mellitus; Z82.49 Family history of ischemic heart disease and other diseases of the circulatory system

== ENCOUNTER 2023-12-30 06:41 | Observation (INO) ==
--- NOTE | 2023-12-30 08:14 | Pre Anesthesia Assessment ---
Date of Service December 30, 2023 Pre Sedation Assessment Vital Signs Pulse Resp Pulse Ox O2 Del Method 12/30/23 07:00 90 12 98 Room Air Cardiovascular + regular rate and + regular rhythm Respiratory + respiratory effort normal Pre-Sedation Airway Assessment Smoking Status: Never smoker Hx Sleep Apnea: No Hx Difficult Intubation: No Short, Thick Neck: No Thyromental Distance: > or= 3.5 Finger Breadths Oral Cavity: + Dentures Mallampati Class: II ASA: ASA3 NPO Status Date of Last Intake of Fluids: 12/30/23 Time of Last Intake of Fluids: 04:30 Last Oral Intake of Fluids Comment: sips with meds Date of Last Intake of Solid Food: 12/29/23 Time of Last Intake of Solid Foods: 20:30 Procedure Planning Contraindications for Sedation: none Current Medications Reviewed: Yes Notes The planned sedation has been discussed with the patient. Informed Consent was obtained. I have identified the patient, determined the appropriateness of sedation and have assessed the patient immediately prior to the procedure. All medicine(s) and interventions are by my order.
--- NOTE | 2023-12-30 08:18 | History & Physical Report ---
Date of Service December 30, 2023 Assessment & Plan (1) Cardiomyopathy: Plan: PLan ICD History of Present Illness Chief Complaint: Cardiomyopthy Primary Care Provider: Judah Hebert III, CRNP Patient with a long history of reduced LV function despite optimal medical therapy. Presents today for ICD implant as primary prevention of SCD Allergies Allergy/AdvReac Type Severity Reaction Status Date / Time oxycodone Allergy Mild ITCHING Verified 11/15/23 10:05 [email or web address] Allergy Hives Verified 11/15/23 10:05 [From [facility] All natural] Home Medications Medication Instructions Recorded Confirmed Type multivitamin 1 tab PO QAM 06/07/18 12/30/23 History aspirin 81 mg tablet,delayed 81 mg PO DAILY 04/27/22 12/30/23 History release metoprolol succinate 25 mg 75 mg PO DAILY 02/21/23 12/30/23 History tablet,extended release 24 hr furosemide 40 mg tablet (Lasix) 40 mg PO QAM #90 tabs 06/02/23 12/30/23 Rx sacubitril 97 mg-valsartan 103 mg 1 tab PO BID #180 tabs 07/06/23 12/30/23 Rx tablet (Entresto) cholecalciferol (vitamin D3) PO DAILY 11/15/23 11/15/23 History levothyroxine 125 mcg tablet 125 mcg PO .COMPLEX #24 tabs 11/15/23 12/30/23 Rx (Synthroid) levothyroxine 150 mcg tablet 150 mcg PO .COMPLEX #66 tabs 11/15/23 12/30/23 Rx (Synthroid) spironolactone 25 mg tablet 25 mg PO DAILY #90 tabs 11/30/23 12/30/23 Rx Past Med/Surg History Problem List Severe aortic stenosis status post aortic valve replacement, operative, 25 millimeter [employer] Inspira valve 05/08/2020, [place]. Performed in conjunction with mitral valve annuloplasty Seasonal allergies (Chronic) Cardiomyopathy (Chronic) Non ischemic - last ECHO shows persistently low LV function. Tolerating medical therapy. Provided literature for ICD at 07/15/21 cardio appt. EF 20-25% in 2018- most recent ECHO 06/16/21- shows EF 25-30% Eczema (Acute) Erectile dysfunction (Acute) Gastro-esophageal reflux disease with esophagitis (Acute) Benign essential hypertension (Chronic) Hypothyroidism (Chronic) Overweight (Acute) Prediabetes (Chronic) Chronic systolic congestive heart failure (Chronic) Medical History Bimalleolar fracture of right ankle Ganglion cyst of tendon sheath of left hand Premature ventricular contractions History of COVID-19 Left ventricular thrombus Aortic stenosis Cardiomyopathy Gastro-esophageal reflux disease with esophagitis Benign essential hypertension Prediabetes Congestive heart failure Hypothyroidism Anxiety Atrial fibrillation Asthma Surgical History History of open heart surgery H/O hand surgery History of colonoscopy History of tooth extraction History of cardiac cath Family History Grandmother (Maternal) Family history of diabetes mellitus Myocardial infarction Father Diabetes Family history of diabetes mellitus Hypertension Mother Myocardial infarction Grandfather (Paternal) Stroke Grandmother (Paternal) Cancer Other No family history of adverse response to anesthesia Denies family history of Ovarian cancer Prostate cancer Breast cancer Colorectal cancer Social History Smoking Status: Never smoker Tobacco Type: Smokeless Tobacco (Dip or Chew) Age Started Using Tobacco: 18; Age Quit Using Tobacco: 28; packs per day: 0.5; Second Hand Exposure: No; Do You Dip or Chew Tobacco: No; Hx Alcohol Use: Yes Alcohol type: hard liquor Alcohol Intake Frequency: 2-3 x/Week Hx Substance Use: No Preferred Language: Stateless Communication Ability: Effective Visual Impairment: No Limitations Hearing Ability: Normal Online Communications Manager Required: No Beliefs That Will Affect Care: None marital status: Current Living Situation: Spouse current occupational status: retired How many Children do You have: 2 Other Information That Helps Us Care for You: No Feels Safe at Home: Yes Safety Concerns: Feels Safe At This Time Childhood Exposure to Second-Hand Smoke: No Diet: regular caffeine: Yes during the past year weight has: decreased > 10 lbs Dental Care, Regularly: No Physical Activity Frequency: Daily Seatbelt Use: sometimes Sunscreen Use: Yes Assistive Devices: Denture - Upper, Denture - Lower and Glasses Physical Exam Physical Exam: Alert. Oriented Normal respiratory effort Normal rhythm No edema Results & Data Results & Data Vital Signs (Past 12 Hours) Vital Signs Pulse Resp Pulse Ox O2 Del Method 12/30/23 07:00 90 12 98 Room Air (1) Cardiomyopathy Cardiomyopathy type: unspecified Qualified Code(s): I42.9 - Cardiomyopathy, unspecified
[2023-12-30] MEDS ORDERED: traMADol HCL 50 MG TABLET PO PRN (09:19)
--- NOTE | 2023-12-30 09:19 | Post Anesthesia Assessment ---
Date of Service December 30, 2023 Post Sedation Assessment Vital Signs Pulse Resp Pulse Ox O2 Del Method 12/30/23 07:00 90 12 98 Room Air Recovery Score Activity: Moves 4 extremities Respiration: Deep Breath/Cough Circulation: +/-20% PreAnes Value Consciousness: Fully Awake Oxygen Saturation: > 92% On Room Air Discharge Sedation Level of Care: Fast Track Phase II Post Sedation Plan On clinical assessment, the patient appears to have tolerated the sedation without complications. Patient is recovering as anticipated. Patient will continue to be monitored by nursing and may be discharged when sedation discharge criteria are met per below protocol. Upon Completions of procedure up to 15 minutes continue every 5 minute vital signs and the P.A.R. score; then discharge to a Phase I or Fast Track to Phase II per the following guidelines: * Discharge Patient to appropriate Phase II area if PAR is 8 or greater or return to pre- procedure baseline. The post - procedure orders will be as directed. * If PAR score is less than 8 or not return to pre-procedure baseline then patient will follow Phase I monitoring till PAR is reached for Phase II. The Phase I may be done in procedure room or may call to secure a Phase I area. * If naloxone or flumazenil are used for reversal, hold in Phase I for continued monitoring from when last reversal dose was given for a minimum of 60 minutes or longer pending the nurse and/or physician discretion of patient condition before discharge to Phase II. Please call the Sedation Physician to re-evaluate and complete post-note for discharge to Phase II area. Do NOT discharge from procedure sedation or Phase 1 until post- sedation evaluation note is complete by procedure /sedation MD Sedation Discharge Instructions to be given to the patient at discharge to home.
--- NOTE | 2023-12-30 09:19 | Electrophysiology Report ---
Date of Service December 30, 2023 Electrophysiology Procedure Electrophysiology Procedure Report Procedure performed: Implantation of single-chamber ICD Staff supervisor pole yard: Lev Calix MD Indication: The patient is a 68-year-old gentleman with a history of a nonischemic cardiomyopathy. Despite optimal medical therapy he has persistently low ejection fraction of 30%. He has not had revascularization in the past 90 days. He has not suffered a myocardial infarction in the past 40 days. He is [place] heart Association class 2 symptoms. He is anticipated longevity greater than 1 year. The has a normal sinus rhythm on EKG without a wide QRS. 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 Procedure detail: The patient was informed the risks benefits and alternatives to the intended procedure. He understood and wished to proceed. He was taken to the electrophysiology suite in a fasting state. Preoperative antibiotic was administered. The patient was monitored electrocardiographically throughout today's procedure and conscious sedation was administered per protocol. The patient was prepped and draped in usual sterile fashion. Area of the left upper pectoral areas anesthetized using subcutaneous menstruation of a Marcaine and xylocaine solution. An incision was made at this site and carried down the prepectoralis fascia using sharp dissection. Electrocautery was also employed for dissection mostly hemostasis. Device pocket was fashioned tissues above the pectoralis muscle. Subsequent to this move the left axillary vein was accessed using modified Seldinger technique. A sheath was placed over guidewire and used facilitate passage of an ICD lead to the right ventricular apex under fluoroscopic guidance. Adequate sensing threshold parameters were obtained prior to active fixation of this lead to the endocardial surface. The proximal portion lead was then sutured to prepectoralis fascia using nonabsorbable suture. The device pocket was irrigated with an antibiotic solution. Lead was attached to the device. The device was then placed inside an antibiotic impregnated envelope. The device and leads were then placed in the pocket the pocket was closed in 3 layers of absorbable suture. Steri-Strips and sterile dressing were applied. The device was tested noninvasively prior conclusion the procedure. The patient tolerated procedure well. There were no immediate complications. Equipment used: New pulse generator: Ditch Digger [employer] model number [id number] serial number [id number] Right ventricular lead: Ditch Digger Medtronic model 6. 935 mm serial number [id number] V Measured data Right ventricular lead: R-waves measured 5.6 mV. Pacing threshold was 0.5 volts at 0.4 milliseconds with a pacing impedance of 494 Ohms Impression: Successful implantation of single-chamber ICD MN[facility] Electrophysiology codes ICD Procedure 1: ICD: 41444 Insert single or dual ICD system PG Moderate Sedation Codes Moderate Sedation Codes Procedure 1: Sedation/Anesthesia: 07177 Mod Sedation by the same physician;Init15 Min Child Age 5 & Up Procedure 2: Sedation/Anesthesia: 22353 Mod Sedation by the same physician; Ea [id number] Minutes
[2023-12-30] MEDS: BUPIVACAINE 0.25% PF 30 ML VIAL ONE (09:22)
[2023-12-30] MEDS: VANCOMYCIN HCL 1000MG/20ML VIAL ONE (09:23)
[2023-12-30] MEDS: LIDOCAINE 1% LOCAL 20 ML VIAL ONE (09:23)
[2023-12-30] MEDS: WATER, STERILE FOR INJ 10 ML VIAL ONE (09:24)
[2023-12-30] MEDS: ceFAZolin 330 MG/ML 1 GM VIAL ONE (09:24)
[2023-12-30] MEDS: fentaNYL citrate PF 100 MCG/2 ML VIAL ONE (09:24)
[2023-12-30] MEDS: MIDAZOLAM HCL 1 MG/ML 2ML VIAL ONE ×2 (09:25)
--- NOTE | 2023-12-30 11:01 | Electrocardiogram Report ---
Test Reason : Blood Pressure : / mmHG Vent. 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
[2023-12-30] MEDS ORDERED: MAGNESIUM HYDROXIDE SUSP 30 ML UDC PO PRN (14:52)
[2023-12-30] MEDS: ACETAMINOPHEN 325 MG TAB PO PRN (15:14)
[2023-12-30] MEDS: ceFAZolin 1000MG 1,000 MG/7.5 ML SYR IV ONE (16:27)
[2023-12-30] MEDS: VALSARTAN/SACUBITRIL 103/97MG TAB PO SCH (20:29)
[2023-12-30] MEDS: LEVOTHYROXINE SODIUM 150 MCG TABLET PO SCH (23:12)
[2023-12-31] MEDS ORDERED: LEVOTHYROXINE SODIUM 150 MCG TABLET PO SCH (06:30)
--- NOTE | 2023-12-31 07:00 | XRay Report ---
TWO VIEW CHEST CLINICAL HISTORY: Pacemaker implantation. FINDINGS: PA and lateral chest radiographs are compared to study dated 09/16/2019. A single-lead cardi ac AICD is new from previous and partially obscures the left upper chest. The lead projects of the ve ntricles. The patient is status post midline sternotomy and cardiac valve surgeries. The heart is enl arged noting atherosclerotic calcification of the thoracic aorta. The pulmonary vasculature is noncon gested. There is mild bibasilar atelectasis. The lungs and pleural spaces are otherwise clear. There is no pneumothorax. The skeletal structures are osteopenic. The bony thorax appears intact. IMPRESSION: 1. A single lead cardiac AICD has been implanted as above. No pneumothorax is identified post procedu re. 2. Cardiomegaly without radiographic evidence of congestive failure. ACT 112: Negative or not required by law. Electronically signed by: Kal Rubin M.D. 12/31/2023 6:59 AM
[2023-12-31] MEDS: FUROSEMIDE 40 MG TAB PO SCH (08:25)
[2023-12-31] MEDS: MULTIVITAMIN TAB PO SCH (08:25)
[2023-12-31] MEDS: SPIRONOLACTONE 25 MG TAB PO SCH (08:25)
[2023-12-31] MEDS: METOPROLOL SUCC 25MG EXT REL TAB PO SCH (08:26)
[2023-12-31] MEDS: ASPIRIN 81 MG ECTAB PO SCH (08:26)
--- NOTE | 2023-12-31 08:31 | Discharge Summary ---
Date of Service December 31, 2023 Admission HPI Per Admitting Provider Patient with a long history of reduced LV function despite optimal medical therapy. Presents today for ICD implant as primary prevention of SCD Principal Diagnosis Cardiomyopathy Discharge Exam On the day of discharge patient was feeling well. Normal respiratory effort. Ambulatory. Device implant site did not reveal any hematoma or drainage. No significant erythema. Discharge Data Allergies Allergy/AdvReac Type Severity Reaction Status Date / Time oxycodone Allergy Mild ITCHING Verified 11/15/23 10:05 empagliflozin Allergy Hives Verified 11/15/23 10:05 [From Jardiance] Procedures Performed Operation Date: 12/30/23 08:00 Actual Procedures p ICD Insertion Single or Dual - Lev Calix MD Ordered Studies 12/30/23 06:45 EP Lab Images for PACS ONCE Hospital Course (1) Cardiomyopathy: Plan On the day of admission the patient underwent implantation of single-chamber Medtronic ICD. No evident complication. The following morning chest x-ray demonstrated stable lead position without pneumothorax. Evaluation the device implant site did not reveal any complication. Device interrogation revealed adequate sensing and threshold on the ventricular lead. Normal function. The patient was felt to be stable for discharge. No medication changes were made. Total Time Total Time Spent Total Time Spent (In Minutes): 20 Discharge Plan Discharge Items Patient Disposition: Home - Self-Care Reason For Visit: Cardiomyopathy Discharge Diagnosis: cardiomyopathy Activity: Per Instructions section Activity Comment: No lifting left arm above shoulder or behind neck for 6 weeks Lifting: No more than 10 pounds Bathing: Keep incision dry Bathing Comment: Keep wound dry and steri-strips intact until f/u Exercise/Sports: Rest today Driving/Machine Use: Resume 1 day after discharge Non-emergency contact: Motor Vehicle Examiner Call non-emergency contact if: you have any medication questions, your pain is concerning for you, you have a fever, your wound has increased redness and your wound has increased drainage Follow-up/Referrals: Judah Hebert III, CRNP [Primary Care Provider] - 01/17/24 4:00 pm Diet: Heart Healthy Addtl Attending Provider Instructions: none Pending Studies at Discharge: No Stand-Alone Forms: My [employer], Smoking Cessation Medications and DC Order Prescriptions: Continued furosemide [Lasix] 40 mg tablet 40 mg PO QAM Qty: 90 3RF Rx Instructions: MAY TAKE 40 MG IN PM PRN WEIGHT GAIN/SWELLING Entresto 97-103 mg tablet 1 tab PO BID Qty: 180 0RF spironolactone 25 mg tablet 25 mg PO DAILY Qty: 90 3RF cholecalciferol (vitamin D3) PO DAILY levothyroxine [Synthroid] 150 mcg tablet 150 mcg PO .COMPLEX Qty: 66 3RF Rx Instructions: 150 mcg orally One tablet daily Wed-Wednesday; levothyroxine [Synthroid] 125 mcg tablet 125 mcg PO .COMPLEX Qty: 24 3RF Rx Instructions: 125 mcg orally Daily on Wednesday and Wednesday; aspirin 81 mg tablet,delayed release (DR/EC) 81 mg PO DAILY multivitamin Tablet 1 tab PO QAM metoprolol succinate 25 mg tablet extended release 24 hr 75 mg PO DAILY Rx Instructions: TAKE 3 TABS BY MOUTH DAILY Discharge Orders: Discharge Order (Routine); Ordered 12/31/23 Ordered By: Lev Calix Admission Data Admit Date/Time: 12/30/23 09:21 Attending Provider: Lev Calix Admit Provider: Lev Calix Primary Care Provider: Judah Hebert III Other Interventions: Discharge Summary Assessment (RN) Last Done: 12/31/23 09:31 Coding Level of Care Code 09725 IN/OBS DISCH 30 MIN/LESS Diagnoses Cardiomyopathy, unspecified type I42.9 Cardiomyopathy type: unspecified
== END 2023-12-31 10:06 | disposition home or self-care (01) ==
LOC: EP 06:41 → 2S 06:41
PROC: EPB.ICD (2023-12-30 08:00)